=== PATIENT | female | born 1955 | race Caucasian/White ===

== ENCOUNTER → 2018-02-17 16:12 | Outpatient (CLI) | payer SELFPAY ==
[2018-03-01 12:09] LABS: Ca Oxalate, Monohydrate 95 % (.); Size 4x4x3 mm (.)
== END ==
PROVIDERS: Family Provider Internal Medicine; Visit Provider Nurse Practitioner Adult Health
DX: N20.0 Calculus of kidney (principal)
CPT/HCPCS: 82360

== ENCOUNTER → 2018-02-28 15:47 | Outpatient (CLI) | payer BC, SELFPAY | PROVIDERS: Visit Provider Nurse Practitioner Adult Health | DX: R31.9 Hematuria, unspecified (principal) | CPT/HCPCS: 87077; 87086; 87088; 87186 ==

== ENCOUNTER → 2020-06-27 08:30 | Outpatient (CLI) | payer MEDICARE, OTHER, SELFPAY ==
--- NOTE | 2020-06-27 08:36 | BD_ITS ---
STUDY: DUAL ENERGY X-RAY ABSORPTIOMETRY / DXA REASON FOR EXAM: Female, 64 years old. 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 COMPARISON: None. FINDINGS: Lumbar Spine (L1-L4): g/cm2 (0.935) / T-score (-1.9) / Z-score (-0.3) Findings are suggestive of osteopenia with a moderate fracture risk. Increased thoracic kyphosis. Left Femur Total: g/cm2 (0.959) / T-score (-0.4) / Z-score (0.9) Left Femoral Neck: g/cm2 (0.854) / T-score (-1.3) / Z-score (0.2) Right Femur Total: g/cm2 (0.948) / T-score (-0.5) / Z-score (0.8) Right Femoral Neck: g/cm2 (0.814) / T-score (-1.6) / Z-score (-0.1) BD/Dexa Bone Density Study IMPRESSION: The patient is considered osteopenic as outlined below according to World Rohit Organization (WHO) criteria with a moderate fracture risk. Reference Information: The T-score is the number of standard deviations above or below the standard which is normal for young adults at their peak bone mineral density. The World Health Organization (WHO) interprets the T-scores as follows: Above -1 Normal bone density Between -1 and -2.5 Osteopenia Equal to / or below -2.5 Osteoporosis As a practical clinical guideline, osteopenia may be graded as follows: Mild -1 through -1.5 Moderate -1.6 through -2.0 Severe -2.1 through -2.4 The Z-score is the number of standard deviations above or below age-matched controls. A Z-score of less than -1.5 would be considered abnormal. References: 1. NIH Osteoporosis and Related Bone Diseases www osteo.org 2. International Society for Clinical Densitometry www iscd.org 3. National Osteoporosis Foundation www nof.org Electronically Signed: Blane Miles, at 9:47 EST , Service support ,
== END ==
PROVIDERS: PCP Nurse Practitioner Primary Care; Referring Provider Nurse Practitioner Primary Care; Visit Provider Nurse Practitioner Primary Care
DX: Z13.820 Encounter for screening for osteoporosis (principal); Z78.0 Asymptomatic menopausal state
CPT/HCPCS: 77080

== ENCOUNTER 2023-04-26 17:27 | Emergency (ER) | payer MEDICARE, OTHER, SELFPAY ==
[2023-04-26 17:31] VITALS: BP 128/74; PULSE 76; RESP 18; TEMP 35.6; O2SAT 100; BMI 34.0
--- NOTE | 2023-04-26 18:17 | EDS_ITS ---
HPI History of Present Illness Chief Complaint: Lower Extremity Injury Informant: patient Narrative Narrative: Patient 67-year-old female with worsening left knee pain presenting for knee pain. Patient actually saw her PCP office today for this is after they were moving her knee around she has had increased pain and warmth to her knee. She is having a hard time ambulating. She was prescribed naproxen but has not picked it up from the pharmacy. She had been taking ibuprofen and thought she was doing better but has not taken it for the past few days. She was referred to orthopedics through [facility] but cannot get in until May 27. Patient states she normally is on her feet and works 4 days a week for 8 hours a day and states she cannot keep going on like this. She has an x-ray through PCP office and they said is not the bone. She denies any fever or chills. She has swelling in her knee but denies any other lower extremity swelling. Denies any other systemic symptoms. Denies any new trauma. No other complaints or concerns at this time. [facility] Medical History Blood in stool Cataracts, bilateral Chest pain History of toxemia of Hyperlipidemia Vitamin D deficiency Home Medications cholecalciferol (vitamin D3) 1,250 mcg (50,000 unit) capsule 1,250 mcg PO 2XW 04/01/23 [History Last Taken Unknown] calcium carbonate 600 mg calcium (1,500 mg) tablet (Calcium) 600 mg PO DAILY 04/13/23 [History Last Taken Unknown] multivitamin 1 tab PO DAILY 04/13/23 [History Last Taken Unknown] Allergy/AdvReac Type Severity Reaction Status Date / Time latex Allergy Rash Verified 04/26/23 17:30 Sulfa (Sulfonamide AdvReac Severe Hives Verified 04/26/23 17:30 Antibiotics) maddox AdvReac migraine Verified 04/26/23 17:30 onion [Onion] AdvReac Other Verified 04/26/23 17:30 orange juice [[place] Juice] AdvReac Other Verified 04/26/23 17:30 Family History Mother CAD (coronary artery disease) Heart disease CABG Father CVA (cerebral vascular accident) cerebral embolism Hypertension Brother Chest pain PVD (peripheral vascular disease) Medley's esophagus Grandfather Alzheimers disease Surgical History History of ankle surgery (~2004) Hx of appendectomy Hx of total hysterectomy (~07/2001) Social History Smoking Status: Never smoker alcohol intake: never substance use type: does not use ROS ROS ED Constitutional Constitutional ED: Denies chills or fever(s) Respiratory/Chest Respiratory/Chest: Denies cough Musculoskeletal Musculoskeletal: Reports other Details: Left knee pain Integumentary Denies rash Neurologic Neurologic: Denies paresthesias or weakness Hematologic/Lymphatic Hematologic/Lymphatic: Denies easy bleeding EXAM Physical Exam Const Vital Signs: 04/26/23 17:31 Temperature 96.1 F L Temperature Source Temporal Pulse Rate 76 Respiratory Rate 18 Blood Pressure 128/74 H Blood Pressure Mean 92 Pulse Ox 100 Oxygen Delivery Method Room Air Positive well nourished and well developed General Appearance ED: well developed and NAD HEENT Reports moist mucous membranes Neck supple Resp normal respiratory effort Cardio regular rate and regular rhythm Extremity Extremity Narrative: Patient has edema and a slight effusion to the left knee. There is mild warmth but no associated erythema. Does not tolerate complete extension of the knee but does not have short arc range of motion. Right now does not really tolerate range of motion of the knee to test for ligamental laxity. No distal edema appreciated. No palpable cords. Neuro oriented x3, moves all extremities and no sensory deficits noted Sensorium / Orientation: alert Psych mental status grossly normal Skin no wounds Rashes: no rashes MDM MDM MDM Narrative Medical decision making narrative: Patient is evaluated for ongoing left knee pain. She does have an associated effusion. Have a low suspicion of a septic joint given her lack of fever, systemic symptoms and short arc range of motion pain. She is already had an x- ray I do not think repeating it is necessary. She is not really maximized NSAID therapy so I do not think we need to start her on steroids at this time. 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 I did give her 1 dose of oxycodone to take tonight if she feels that she needs it. Is given an Chucho wrap. She does have a walker to use as needed. Counseled on the importance of resting it and letting the inflammation go down as well as RICE therapy. Will be given referral to [facility] to see if they can get her in sooner. I did peer counselor the patient that I am not able to order an emergent MRI for her. She does verbalize understanding of this. Is given return precautions I did discuss the signs of a septic joint and reasons to return to the emergency room as well as generalized debility. We did discuss giving 1 dose of IM morphine in the ER but patient declined. Discharge Plan Triage Chief Complaint: Lower Extremity Injury ED Provider: Suzanne Cao Dx/Rx/DC Orders Clinical Impression: Effusion of left knee, Acute pain of left knee Instructions: ED Knee Pain of Uncertain Cause, ED Knee Effusion Prescriptions: No Action cholecalciferol (vitamin D3) 1,250 mcg (50,000 unit) capsule 1,250 mcg PO 2XW multivitamin Tablet 1 tab PO DAILY calcium carbonate [Calcium 600] 600 mg calcium (1,500 mg) tablet 600 mg PO DAILY Primary Care Provider: JO ANN MIRELES Referrals: Andrea Medrano MD [Med Staff - Active Staff] - Sekou Lundy MD [Med Staff - Active Staff] - JO ANN MIRELES, [employer] [Primary Care Provider] - Activity Restrictions/Additional Instructions: Ice your knee is much as possible and elevate it. Wear Chucho wrap to help with compression and stability. Use walker to help you get around especially if this level of pain persist. If you develop fever, chills, redness over the knee or do not feel like you are safe to get around at home please return to the emergency room. You have been given referral for 2 different orthopedist to hopefully get you seen sooner. He can call their office tomorrow to try to schedule an appointment. Disposition Disposition: Home, Self Care
[2023-04-26] MEDS: Naproxen 375 MG Tablet PO (18:29)
[2023-04-26] MEDS: oxyCODONE 5 MG Tablet PO (18:41)
== END 2023-04-26 18:54 | disposition home or self-care (01) ==
LOC: ED 18:40
PROVIDERS: Emergency Provider Emergency Medicine; PCP Nurse Practitioner; Visit Provider Emergency Medicine
DX: M25.562 Pain in left knee (principal); M25.462 Effusion, left knee; E78.5 Hyperlipidemia, unspecified; Z90.49 Acquired absence of other specified parts of digestive tract; Z90.710 Acquired absence of both cervix and uterus
CPT/HCPCS: 99282

== ENCOUNTER → 2023-05-04 | Outpatient (CLI) | payer MEDICARE, OTHER, SELFPAY ==
--- NOTE | 2023-05-04 16:53 | STRESSREP ---
Stress Test Report Date: 05/04/2023 Procedure: Pharmacologic stress nuclear imaging study Indications: Chest pain Consent: Per the patient Procedure: The patient underwent pharmacologic (Regadenoson 0.4mg ) evaluation with a peak heart rate of 141 beats per minute (93%predicted maximal heart rate) and a peak blood pressure of 154/80 mmHg. The baseline ECG demonstrated sinus rhythm. The peak pharmacologic ECG demonstrated no ischemic change. There were no cardiac dysrhythmias pretest, during pharmacologic infusion, or recovery. There was no complaint of chest discomfort during pharmacologic infusion or recovery. The patient was injected with 14.1 millicuries of technetium 99m Cardiolite and subsequently rest SPECT Cardiolite nuclear imaging was obtained in the horizontal long, vertical long, and short axis views. The patient underwent pharmacologic (Regadenoson) evaluation. The patient was injected with 43.3 millicuries of technetium 99m Cardiolite and subsequently stress SPECT Cardiolite nuclear imaging was obtained in the horizontal long, vertical long, and short axis views. A gated Cardiolite study at peak stress was obtained. The examination was stopped secondary to completion of protocol. Rest and stress SPECT Cardiolite nuclear imaging status post realignment, normalization, and attenuation correction demonstrate no fixed or reversible perfusion defects. There is end systolic thickening and brightening. The gated Cardiolite study demonstrates myocardial thickening and inward wall motion. The reported LVEF is 71%. Impression: 1. Pharmacologic (Regadenoson) evaluation 2. Peak pharmacologic ECG with no ischemic changes. 3. There were no cardiac dysrhythmias pretest, during pharmacologic infusion, or recovery. 5. Rest and stress SPECT Cardiolite nuclear imaging demonstrate relative uniform tracer uptake and myocardial perfusion appearing within normal limits. 6. The gated Cardiolite study reports an LVEF of 71%. This note was generated with [employer] software. It may contain incorrect words, spelling, and punctuation that were not noted in checking the note before signing.
== END | disposition home or self-care (01) ==
PROVIDERS: PCP Nurse Practitioner; Referring Provider Internal Medicine Cardiovascular Disease; Visit Provider Internal Medicine Cardiovascular Disease
DX: R07.9 Chest pain, unspecified (principal)
CPT/HCPCS: 78452; 93017; A9500

== ENCOUNTER 2023-09-09 05:21 | Day surgery (SDC) | payer MEDICARE, OTHER, SELFPAY ==
[2023-09-09] VITALS (14 sets, daily range): BP systolic 97–132; BP diastolic 53–103; PULSE 46–71; RESP 14–16; TEMP 35.9–36.4; O2SAT 84–99; BMI 34.1
--- OUTSIDE RECORDS SUMMARY | 2023-09-09 05:26 | XMS RPT_ITS | CCD ---
Author Name Unknown Address [address] [place] [address] Organization [facility] Care Team Providers Care Healthcare Translator Name Role Phone Tizzano, Derrick P Unavailable Unavailable Tizzano, Derrick P Unavailable Unavailable No Doctor Assigned, Nodr Unavailable Unavail able Tizzano, Derrick P Unavailable Unavailable Tizzano, Derrick P Unavailable Unavailable No Doctor Assigned, Nodr Unavailable Unavail able PANCHITO MARKS Unavailable Unavailable PHYSICIAN, NONE Unavailable Unavailable Marcy FELIZ, Sue Primary Care Provider [phone] Sue Vidal MD Primary Care Provider Sue Vidal MD Primary Care Provider [phone] OLDER, DAFNE Referring Unavailable GANTA, SUE Primary Care Unavailable GANTA, SUE Referring Unavailable GANTA, SUE Primary Care Unavailable GANTA, SUE Referring Unavailable GANTA, SUE Attending Unavailable GANTA, SUE Primary Care Unavailable OLDER, DAFNE Attending Unavailable GANTA, SUE Primary Care Unavailable OLDER, DAFNE Referring Unavailable GANTA, SUE Primary Care Unavailable OLDER, DAFNE Referring Unavailable GANTA, SUE Primary Care Unavailable OLDER, DAFNE Referring Unavailable GANTA, SUE Primary Care Unavailable GANTA, SUE Primary Care Unavailable LIU, THAD Referring Unavailable GANTA, SUE Primary Care Unavailable OLDER, DAFNE Attending Unavailable GANTA, SUE Primary Care Unavailable OLDER, DAFNE Referring Unavailable GANTA, SUE Primary Care Unavailable OLDER, DAFNE Attending Unavailable GANTA, SUE Primary Care Unavailable OLDER, DAFNE Referring Unavailable GANTA, SUE Primary Care Unavailable OLDER, DAFNE Attending Unavailable GANTA, SUE Primary Care Unavailable Allergies Allergy Classification Reported Allergen(s) Allergy Type Date of Onset Reaction(s) Facility (12 sources) Latex; Translations: [Latex] Propensity to adverse reactions to drug (disorder) 05-16-20 08 Rash [facility] Repository (11 sources) Ciprofloxacin; Translations: [CIPROFLOXACIN] Drug Allergy 07-31-20 14 Intolerance [facility] Work Phone: (11 sources) metroNIDAZOLE; Translations: [METRONIDAZOLE] Drug Allergy 07-31-20 14 Intolerance [facility] Work Phone: (11 sources) Sulfamethoxazole / Trimethoprim; Translations: [SULFAMETHOXAZOLE-T RIMETHOPRIM] Drug Allergy 10-27-19 19 Rash, Swelling [facility] Work Phone: (10 sources) onions [Other] Propensity to adverse reactions 06-03-20 11 Other: See Comments [facility] (10 sources) processed fruits [Other] Propensity to adverse reactions 06-03-20 11 Other: See Comments [facility] (1 source) Onion extract; Translations: [ONION] Drug Allergy 07-28-20 [facility] Repository (1 source) OTHER; Translations: [OTHER] Propensity to adverse reactions (disorder) 06-03-20 11 [facility] Repository Medications Current Medications Medication Drug Class(es) Dates Sig (Normalized) Sig (Original) perflutren lipid microspheres 1.3 mL in NaCl (PF) 0.9% 10 mL injection (DEFINITY) (4 sources) Start: 03-15-2023 End: 06-13-2024 perflutren lipid microspheres 1.3 mL in NaCl (PF) 0.9% 10 mL injection (DEFINITY) 125 ml sodium chloride 9 mg/ml prefilled syringe (4 sources) Start: 03-15-2023 End: 06-13-2024 sodium chloride 0.9 % (flush) 10 mL (BD POSIFLUSH) Completed/Discontinued Medications Medication Drug Class(es) Dates Sig (Normalized) Sig (Original) cholecalciferol 1.25 mg oral capsule (12 sources) Vitamin D Start: 09-07-2022 End: 03-15-2023 take 1 capsule by mouth two times weekly cholecalciferol, Vitamin D3, (VITAMIN D3) 1,250 mcg (50,000 unit) cap capsule Take 1 capsule by mouth two times a week. 24 capsule 0 03/15/2023 Active Problems Active Problems Problem Classification Problem Date Documented Da te Episodic/Chronic Coagulation and hemorrhagic disorders (9 sources) Thrombocytopenic disorder; Translations: [Thrombocytopenia, unspecified] Onset: 2 Chronic Disorders of lipid metabolism (13 sources) Pure hypercholesterolemia; Translations: [Pure hypercholesterolemia, unspecified] Onset: 6 Chronic Esophageal disorders (1 source) Dyskinesia of esophagus; Translations: [Esophageal spasm] Onset: 3 Chronic Gastrointestinal hemorrhage (10 sources) Hematochezia; Translations: [Melena] 07-13-2014 Episodic Immunizations and screening for infectious disease (1 source) Vaccination needed; Translations: [Encounter for immunization] Episodic Nonspecific chest pain (4 sources) Chest pain; Translations: [Chest pain, unspecified] Onset: 3 03-15-2023 Episodic Nutritional deficiencies (14 sources) Vitamin D deficiency; Translations: [Vitamin D deficiency, unspecified] Onset: 9 12-19-2008 Chronic Other hematologic conditions (1 source) Raised cardiac enzyme or marker; Translations: [Other specified abnormalities of plasma proteins] 04-27-2023 Episodic Viral infection (2 sources) Verruca vulgaris; Translations: [Other viral warts] Episodic Past or Other Problems Problem Classification Problem Date Documented Da te Episodic/Chronic Other bone disease and musculoskeletal deformities (8 sources) Osteopenia; Translations: [Other specified disorders of bone density and structure, multiple sites] Onset: 05-15-2022 Episodic Other non-traumatic joint disorders (3 sources) Pain in left knee; Translations: [Pain in joint, lower leg] Onset: 04-06-2023 04-06-2023 Episodic Other screening for suspected conditions (not mental disorders or infectious disease) (3 sources) Patient encounter status; Translations: [Encounter for screening for diabetes mellitus] Onset: 03-15-2023 Episodic Results Test Name Value Interpretation Reference Range Facil ity Vital Signs Date Time Vital Sign Value Performing Clinician Kendal mackenzie 04-26-2023 08:51-0400 Body weight 81.19 kg Dafne Mireles APRN.CNP Work Phone: [facility] 04-26-2023 08:51-0400 Diastolic blood pressure 80 mm[Hg] Dafne Mireles APRN.CNP Work Phone: [facility] 04-26-2023 08:51-0400 Heart rate 84 /min Dafne Older RFID MANAGER.PROCESS IMPROVEMENT ENGINEER Work Phone: [facility] 04-26-2023 08:51-0400 Respiratory rate 16 /min Dafne Older RFID MANAGER.PROCESS IMPROVEMENT ENGINEER Work Phone: [facility] 04-26-2023 08:51-0400 Systolic blood pressure 122 mm[Hg] Dafne Older RFID MANAGER.PROCESS IMPROVEMENT ENGINEER Work Phone: [facility] 04-06-2023 08:50-0400 Body temperature 98.29 [degF] Thad Liu RFID MANAGER.PROCESS IMPROVEMENT ENGINEER Work Phone: [facility] 04-06-2023 08:50-0400 Body weight 83.46 kg Thad Liu RFID MANAGER.PROCESS IMPROVEMENT ENGINEER Work Phone: [facility] 04-06-2023 08:50-0400 Diastolic blood pressure 80 mm[Hg] Thad Liu RFID MANAGER.PROCESS IMPROVEMENT ENGINEER Work Phone: [facility] 04-06-2023 08:50-0400 Heart rate 98 /min Thad Liu RFID MANAGER.PROCESS IMPROVEMENT ENGINEER Work Phone: [facility] 04-06-2023 08:50-0400 Respiratory rate 16 /min Thad Liu RFID MANAGER.PROCESS IMPROVEMENT ENGINEER Work Phone: [facility] 04-06-2023 08:50-0400 SaO2% (BldA) [Mass fraction] 96 % Thad Liu RFID MANAGER.PROCESS IMPROVEMENT ENGINEER Work Phone: [facility] 04-06-2023 08:50-0400 Systolic blood pressure 122 mm[Hg] Thad Liu RFID MANAGER.PROCESS IMPROVEMENT ENGINEER Work Phone: [facility] 03-15-2023 08:44-0400 Body weight 82.56 kg Dafne Older RFID MANAGER.PROCESS IMPROVEMENT ENGINEER Work Phone: [facility] 03-15-2023 08:44-0400 Diastolic blood pressure 80 mm[Hg] Dafne Older RFID MANAGER.PROCESS IMPROVEMENT ENGINEER Work Phone: [facility] 03-15-2023 08:44-0400 Heart rate 60 /min Dafne Older RFID MANAGER.PROCESS IMPROVEMENT ENGINEER Work Phone: [facility] 03-15-2023 08:44-0400 Respiratory rate 16 /min Dafne Older RFID MANAGER.PROCESS IMPROVEMENT ENGINEER Work Phone: [facility] 03-15-2023 08:44-0400 Systolic blood pressure 132 mm[Hg] Dafne Older RFID MANAGER.PROCESS IMPROVEMENT ENGINEER Work Phone: [facility] 09-07-2022 08:39-0500 Body height 156.2 cm Sue Vidal MD Work Phone: [facility] 09-07-2022 08:39-0500 Body temperature 96.6 [degF] Sue Vidal MD Work Phone: [facility] 09-07-2022 08:39-0500 Body weight 83.01 kg Sue Vidal MD Work Phone: [facility] 09-07-2022 08:39-0500 Diastolic blood pressure 58 mm[Hg] Sue Vidal MD Work Phone: [facility] 09-07-2022 08:39-0500 Heart rate 80 /min Sue Vidal MD Work Phone: [facility] 09-07-2022 08:39-0500 Respiratory rate 12 /min Sue Vidal MD Work Phone: [facility] 09-07-2022 08:39-0500 SaO2% (BldA) [Mass fraction] 96 % Sue Vidal MD Work Phone: [facility] 09-07-2022 08:39-0500 Systolic blood pressure 118 mm[Hg] Sue Vidal MD Work Phone: [facility] 05-15-2022 09:25-0400 Body height 156.2 cm Sue Vidal MD Work Phone: [facility] 05-15-2022 09:25-0400 Body temperature 97.59 [degF] Sue Vidal MD Work Phone: [facility] 05-15-2022 09:25-0400 Body weight 82.56 kg Sue Vidal MD Work Phone: [facility] 05-15-2022 09:25-0400 Diastolic blood pressure 72 mm[Hg] Sue Vidal MD Work Phone: [facility] 05-15-2022 09:25-0400 Heart rate 83 /min Sue Vidal MD Work Phone: [facility] 05-15-2022 09:25-0400 Respiratory rate 14 /min Sue Vidal MD Work Phone: [facility] 05-15-2022 09:25-0400 SaO2% (BldA) [Mass fraction] 96 % Sue Vidal MD Work Phone: [facility] 05-15-2022 09:25-0400 Systolic blood pressure 114 mm[Hg] Sue Vidal MD Work Phone: [facility] 02-03-2022 14:25-0400 Body height 156.2 cm Sue Vidal MD Work Phone: [facility] 02-03-2022 14:25-0400 Body temperature 97 [degF] Sue Vidal MD Work Phone: [facility] 02-03-2022 14:25-0400 Body weight 83.92 kg Sue Vidal MD Work Phone: [facility] 02-03-2022 14:25-0400 Diastolic blood pressure 66 mm[Hg] Sue Vidal MD Work Phone: [facility] 02-03-2022 14:25-0400 Heart rate 75 /min Sue Vidal MD Work Phone: [facility] 02-03-2022 14:25-0400 Respiratory rate 12 /min Sue Vidal MD Work Phone: [facility] 02-03-2022 14:25-0400 SaO2% (BldA) [Mass fraction] 96 % Sue Vidal MD Work Phone: [facility] 02-03-2022 14:25-0400 Systolic blood pressure 120 mm[Hg] Sue Vidal MD Work Phone: [facility] 02-02-2022 15:16-0400 Body weight 84.1 kg Sue Vidal MD Work Phone: [facility] 02-02-2022 15:16-0400 Diastolic blood pressure 74 mm[Hg] Sue Vidal MD Work Phone: [facility] 02-02-2022 15:16-0400 Heart rate 54 /min Sue Vidal MD Work Phone: [facility] 02-02-2022 15:16-0400 Respiratory rate 16 /min Sue Vidal MD Work Phone: [facility] 02-02-2022 15:16-0400 SaO2% (BldA) [Mass fraction] 97 % Sue Vidal MD Work Phone: [facility] 02-02-2022 15:16-0400 Systolic blood pressure 116 mm[Hg] Sue Vidal MD Work Phone: [facility] Encounters Encounter Date Encounter Type Care Provider Facility Start: 08-19-2023 End: 08-20-2023 [facility] Start: 08-19-2023 Encounter for other preprocedural examination DAFNE MIRELES [facility] Start: 08-19-2023 End: 08-20-[address] [facility] Start: 07-28-2023 End: 07-29-[address] [facility] Start: 05-06-2023 End: 05-06-[address] [facility] Facility[facility] Start: 04-26-2023 End: 04-26-[address] [facility] Facility[facility] Start: 04-26-2023 End: 04-26-2023 Patient encounter procedure Dafne Mireles RFID MANAGER.PROCESS IMPROVEMENT ENGINEER Work Phone: [facility] Procedures Date Procedure Procedure Detail Performing Clinician Start: 03-15-2023 Ecg routine ecg w/le ast 12 lds i&r only Dafne Older RFID MANAGER.PROCESS IMPROVEMENT ENGINEER Work Phone: Start: 03-15-2023 Lipid 1996 panel - S [place] or Plasma Dafne Older RFID MANAGER.NATALIE Work Phone: Start: 05-04-2022 Mammography Mammograph y Coordinator Start: 05-02-2020 Mammography Sue flores MD Work Phone: Start: 08-01-2014 Colonoscopy Sue flores MD Work Phone: Plan of Treatment Date Care Activity Detail Author Start: 03-15-2028 Lipid 1996 panel - Serum or Plasma Lipid Screening [facility] Start: 03-15-2028 LIPID SCREEN LIPID SCREEN [facility] Start: 05-04-2027 LIPID SCREEN LIPID SCREEN [facility] Start: 03-15-2026 DIABETES SCREEN DIABETES SCREEN [facility] Start: 03-15-2026 Diabetes Screening Diabetes Screenin g [facility] Start: 05-04-2025 DIABETES SCREEN DIABETES SCREEN [facility] Start: 03-08-2025 LIPID SCREEN LIPID SCREEN [facility] Start: 08-01-2024 Colonoscopy COLONOSCOPY [facility] Start: 08-01-2024 COLORECTAL CANCER SCREENING COLORECTAL CANCER SCREENING [facility] Start: 05-04-2023 Mammography [facility] Start: 04-09-2023 Influenza vaccination [facility] Start: 03-08-2023 DIABETES SCREEN DIABETES SCREEN [facility] Start: 08-15-2022 End: 10-15-2022 25-hydroxyvitamin D3 [Mass/volume] in Serum or Plasma VITAMIN D 25 HYDROXY Lab Routine Vitamin D deficiency Expected: 08/15/2022, Expires: 10/15/2022 [facility] Work Phone: Immunizations Immunization Date Immunization Notes Care Provider Fa cili 09-07-2022 pneumococcal polysaccharide vaccine, 23 valent Sue Vidal MD Work Phone: [facility] Work Phone: 03-08-2020 pneumococcal conjuga te vaccine, 13 valent Sue Vidal MD Work Phone: [facility] 04-20-2014 hepatitis A and hepatitis B vaccine Sue Vidal MD Work Phone: [facility] 10-18-2013 hepatitis A vaccine, unspecified formulation Sue Vidal MD Work Phone: [facility] 10-18-2013 hepatitis B vaccine, adult dosage Sue Vidal MD Work Phone: [facility] Payers Date Payer Category Payer Medicare MEDICARE MEDICAR E A AND B [id number] 2018-Present [phone] [place] [address] Medicare [id number] 2018 Medicare MEDICARE MEDICAR E A AND B [id number] 2018-Present [phone] [place] [address] Medicare [id number] 2018 Medicare [id number] 2018 Medicare [id number] 2018 Private Health Insurance [employer] A [employer]NA MEDICARE SUPPLEMENT [id number] 2018-Present [phone] [address] [address] [place] [address] Indemnity [id number] 2018 Private Health Insurance [employer] A [employer]NA MEDICARE SUPPLEMENT [id number] 2018-Present [phone] [address] [address] [place] [address] Indemnity [id number] 2018 Unknown [id number] 2017 Unknown Social History Date Type Detail Facility Start: 06-03-2011 End: 05-15-2022 Tobacco smoking status NHIS Never smoked tobacco [facility] Start: 02-02-2022 End: 04-06-2023 Alcohol intake Current non-drinker of alcohol (finding) [facility] Start: 01-28-1956 Sex Assigned At Not on file [facility] Start: 01-23-2022 End: 05-15-2022 Exposure to SARS-CoV-2 (event) Not sure [facility] Work Phone: Start: 06-03-2011 End: 05-15-2022 Tobacco use and exposure Smokeless tobacco non-user [facility] Start: 09-07-2022 End: 03-15-2023 History of Social function [facility] Work Phone: Start: 09-07-2022 End: 03-15-2023 Tobacco use panel [facility] Work Phone: Adult Depression Screening Assessment 0 [facility] Work Phone: Clinical Notes 02-02-2022 to 08-19-2023 Dfane Mireles APRN.PROCESS IMPROVEMENT ENGINEER - 04/26/2023 8:59 AM EDTTelephone Encounter - Thad Liu APRN.PROCESS IMPROVEMENT ENGINEER - 04/06/2023 10:33 AM EDThad Vizcarra APRN.PROCESS IMPROVEMENT ENGINEER - 04/06/2023 8:53 AM EDT Note Date & Type Note Facility 08-19-2023 Note HNO ID: [id number] Author: DAFNE MIRELES APRN.PROCESS IMPROVEMENT ENGINEER Service: ? Author Type: Nurse Practitioner Type: Progress Notes Filed: 08/19/2023 14:19 Note Text: CC: Patient presents with: Pre-Op Exam: Pre-op Clearance, L shoulder HPI Aleisha Johnston is a 67 year old female who presents today for pre-op evaluation. Surgical Procedure: Left shoulder arthroscopy with rotator cuff repair. Date of Procedure: 09/09/23 Surgeon: Dr. Dariela GALEANO date: 08/20/23 METS: Walk indoors, such as around the house (1.75 METs): YES Do light work around the house, such as dusting or washing dishes (2.70 METs): YES Take care of self; that is eating, dressing, bathing, using the toilet (2.75 METs): YES Walk a block or two on level ground (2.75 METs): YES Do moderate work around the house such as vacuuming, sweeping floors, or carrying in groceries (3.50 METs): YES Do yardwork, such as raking leaves, weeding,or pushing a power mower (4.50 METs): YES Climb a flight of stairs or walk up a hill (5.50 METs): YES Participate in moderate recreational activities, such as golf, bowling, dancing, doubles tennis, or throwing a baseball or football (6.00 METs): YES Participate in strenuous sport, such as swimming, singles tennis, football, basketball, or skiing (7.50 METs): unknown - unable to do with knees Do heavy work around the house, such as scrubbing floors, lifting or moving heavy furniture (8.00 METs): unknown - unable to do with knees Run a short distance (8.00 METs): unknown - unable to do with knees Total: 6 Patient denies any chest pain or undue shortness of breath with the above physical activity. 1. Diabetes: None 2. Hypertension requiring medication: No 3. Congestive Heart Failure: No 4. Current Smoker within 1 Year: No 5. History of COPD: No 6. History of JAMES: No 7. Dialysis: No Has had ongoing sternal pain. Has had a work up last year. EKG showed NSR 03/15/23 ECHO on 03/15/23: - The left ventricle is normal in size. Left ventricular systolic function is normal. EF = 61 ? 5% (2D biplane) Grade I left ventricular diastolic dysfunction. - The right ventricle is normal in size. Right ventricular systolic function is normal. - There are no significant valvular abnormalities. Stress test on Stress Test without ischemia on 05/04/[address] Colin with [facility] on 05/24/23 reviewing information without concern. Still with occasional chest pain without known cause. Does not happen with exertion and not correlated with eating. Was going to trial PPI to see if possible GERD or esophageal spasm, but patient does not want to take this. Denies shortness of breath, coughing, wheezing, fever, chills, palpitations, edema, and chest pressure. Chronic mild thrombocytopenia: No abnormal bleeding at this time, will recheck prior to surgery REVIEW OF SYSTEMS General: no fevers, no chills, no night sweats, no recurrent infections, no change in appetite, no change in energy, and no significant changes in weight HEENT: no frequent or significant headaches, no changes in hearing, no visual changes, no nose bleeds, no sinus or nasal problems Neck: no lumps, no pain , and no swelling Respiratory: no cough, no wheezing, no shortness of breath, no hemoptysis Cardiovascular: no chest pain, no chest pressure, no palpitations, and no swelling GI: No nausea, vomiting, or diarrhea : No history of dysuria, frequency or incontinence Neurologic: No headache, weakness, numbness, dizziness, memory loss, syncope. PAST MEDICAL HISTORY Diagnosis Date Blood in stool Cataracts, bilateral in [place] Other and unspecified hyperlipidemia Toxemia in PAST SURGICAL HISTORY Procedure Laterality Date APPENDECTOMY remote COLONOSCOPY 2004 COLONOSCOPY FLX DX W/COLLJ SPEC WHEN PFRMD 08/01/2014 Colonoscopy OPTX ANKLE DISLOCATION W/REPAIR/INT/XTRNL FIXJ 2004 ORIF Ankle, left TOTAL ABDOMINAL HYSTERECT W/WO RMVL TUBE OVARY 07/09 Hysterectomy, LARISSA ALLERGIES Bactrim [Sulfamethoxazole-Trimethoprim], Ciprofloxacin, Latex, Metronidazole, and Onion MEDICATIONS cholecalciferol, Vitamin D3, (VITAMIN D3) 1,250 mcg (50,000 unit) cap capsuleTake 1 capsule by mouth two times a week.Disp: 24 capsuleRfl: 0 FAMILY HISTORY Problem Relation Age of Onset Heart Mother bypass surgery Cerebral Embolism Father x2 strokes Hypertension Father No Known Problems Sister No Known Problems Sister other (CP) Brother other (luna's esophagus) Brother other (PVD) Brother Alzheimer's Disease Paternal Grandfather Social History Tobacco Use Smoking status: Never Smokeless tobacco: Never Vaping Use Vaping Use: Never used Substance Use Topics Alcohol use: No Drug use: No PHYSICAL EXAM BP 122/80 Pulse 72 Temp 36.1 ?C (97 ?F) (Temporal) Resp 16 Wt 82.6 kg (182 lb) SpO2 95% BMI 33.83 kg/m? General Appearance: well appearing, in no acute distre (more content not included)... [facility] 07-28-2023 Note HNO ID: [id number] Author: Dafne Mireles APRN.CNP Service: ? Author Type: Nurse Practitioner Type: Progress Notes Filed: 07/29/2023 12:40 PM Note Text: CC: Patient presents with: Recheck: 3 month follow up HPI Aleisha Johnston is a 67 year old female who presents today for routine follow up. Still with intermittent sternal queezing that can last for minutes to hours. Had recent negative stress test after seeing cardiology. Feels like she needs water when it happens. Occurs randomly wether she is resting or doing activity. Denies palpitations, nausea, heartburn, abdominal pain, difficulty swallowing, shortness of breath, edema, dizziness, fatigue, or syncope. REVIEW OF SYSTEMS General: no fevers, no chills, no night sweats, no recurrent infections, no change in appetite, no change in energy, and no significant changes in weight Respiratory: no cough, no wheezing, no shortness of breath, no hemoptysis Cardiovascular: no palpitations and no swelling Neurologic: No headache, weakness, numbness, tingling, neck stiffness, tremor, vertigo, dizziness, memory loss, syncope. PAST MEDICAL HISTORY Diagnosis Date Blood in stool Cataracts, bilateral in [place] Other and unspecified hyperlipidemia Toxemia in PAST SURGICAL HISTORY Procedure Laterality Date APPENDECTOMY remote COLONOSCOPY 2004 COLONOSCOPY FLX DX W/COLLJ SPEC WHEN PFRMD 08/01/2014 Colonoscopy OPTX ANKLE DISLOCATION W/REPAIR/INT/XTRNL FIXJ 2004 ORIF Ankle, left TOTAL ABDOMINAL HYSTERECT W/WO RMVL TUBE OVARY 07/09 Hysterectomy, LARISSA ALLERGIES Bactrim [Sulfamethoxazole-Trimethoprim], Ciprofloxacin, Latex, Metronidazole, Onions [Other], and Processed Fruits [Other] MEDICATIONS naproxen (NAPROSYN) 500 mg tabletTake 1 tablet by mouth twice daily as needed (for pain/inflammation). Take with food.Disp: 30 tabletRfl: 0 cholecalciferol, Vitamin D3, (VITAMIN D3) 1,250 mcg (50,000 unit) cap capsuleTake 1 capsule by mouth two times a week.Disp: 24 capsuleRfl: 0 FAMILY HISTORY Problem Relation Age of Onset Heart Mother bypass surgery Cerebral Embolism Father x2 strokes Hypertension Father No Known Problems Sister No Known Problems Sister other (CP) Brother other (luna's esophagus) Brother other (PVD) Brother Alzheimer's Disease Paternal Grandfather Social History Tobacco Use Smoking status: Never Smokeless tobacco: Never Vaping Use Vaping Use: Never used Substance Use Topics Alcohol use: No Drug use: No PHYSICAL EXAM BP 128/78 Pulse 80 Resp 16 Wt 82.1 kg (181 lb) SpO2 96% BMI 33.65 kg/m? General Appearance: well appearing, in no acute distress, alert Pysch: mood and affect broad and appropriate Skin: Skin color, texture, turgor normal for age; Eyes: conjunctiva pink and moist, no icterus, sclera white, non-injected Lungs: Lungs clear to auscultation. No wheezing, rhonchi, rales. Heart: RRR without murmur, gallop, or rubs. No ectopy Health maintenance reviewed with patient: Covid-19 Vaccine(1) Never done DTaP,Tdap,Td Vaccine(1 - Tdap) Never done Shingrix Vaccine(1 of 2) Never done RSV Vaccine(1 - 1-dose 60+ series) Never done Advance Directive Discussion Never done Influenza Vaccine(1) Never done Mammogram Screening due on 05/06/2024 Colorectal Cancer Screening due on 08/01/2024 Diabetes Screening due on 03/15/2026 Lipid Screening due on 03/15/2028 Bone Density Screening Completed Depression Assessment Completed Pneumococcal Vaccine: 65+ Completed Hepatitis C Screening Discontinued DATA REVIEWED: Most recent labs and imaging results. ASSESSMENT/PLAN: 1. Sternal pain - ICD9: 786.50, ICD10: R07.89 (primary diagnosis) - not cardiac related. Possible esophageal spasm. Starting on PPI and will recheck in 4-6 weeks. May need EGD - H PYLORI IGG AB 2. Esophageal spasm - ICD9: 530.5, ICD10: K22.4 As above - H PYLORI IGG AB 3. Vitamin D deficiency - ICD9: 268.9, ICD10: E55.9 - VITAMIN D 25 HYDROXY Prescription instructions reviewed with patient as applicable. Potential red flag symptoms discussed with the patient. Reviewed appropriate action plan to take if red flag symptoms occur. Patient agreeable to treatment plan. Dafne Mireles APRN.[facility] 05-06-2023 Note HNO ID: [id number] Author: aTmmy Marino MammEMCAS Service: ? Author Type: Surveillance Systems Analyst Type: Progress Notes Filed: 05/06/2023 8:04 AM Note Text: Radiology Service Progress Note PATIENT NAME: Aleisha Johnston DATE OF SERVICE: May 06, 2023 TIME: 7:39 AM PATIENT IDENTITY VERIFICATION COMPLETED USING TWO (2) IDENTIFIERS: Name and Date of confirmed by patient verbally. FALL SCREENING: Has the patient had 2 falls in the last year or 1 fall with injury or currently using an Ambulatory Assistive Device (Walker, Cane, Wheelchair, Crutches, etc.)? No PATIENT GENDER DATA: Female. status: : No status: NO. PATIENT RELEVANT IMPLANT DATA REVIEWED: Not Applicable RADIOLOGY DEPARTMENT: Mammography PERIPHERAL IV DATA: Not applicable SIGNED BY: Tammy Marino Ning May 06, 2023 7:39 AM [facility] 04-26-2023 Note HNO ID: [id number] Author: Dafne Mireles APRN.PROCESS IMPROVEMENT ENGINEER Service: ? Author Type: Nurse Practitioner Type: Progress Notes Filed: 04/27/2023 9:47 AM Note Text: CC: Patient presents with: Recheck: Follow up HPI Aleisha Johnston is a 67 year old female who presents today for follow up on chest pain but main concern is left knee pain. Chest pain: Saw Dr. Colin at [facility]. Has stress test ordered for next week as her troponin was elevated and she continues with intermittent chest pain. No change or increase in symptoms. Denies shortness of breath, sweating, palpitations, edema, or change in energy. Left knee pain. Started suddenly over labor day weekend but no injury or identifiable cause. Was seen in Urgent Care 4 weeks ago with xray showing mild arthritic changes. Pain is described as sharp and stabbing when she puts weight on it. Hurts worse at work as she is on her feet the whole day. Tried a compression brace but would roll and cause additional pain. Tried ibuprofen a week ago which was helpful but has not taken since then. Thought it was getting better but end of last week started to intensify again. Denies any instability but is afraid to fall so walks slowly and uses handrails on stairs. Feels her knee gets very stiff and has to extend and flex to get it to bend again. Still with some edema, no redness, fever, weakness, numbness or recent infection. HLD: Denies any chest pain, shortness of breath or known exercise intolerance. Overall tries to eat a well balanced healthy diet and is unable to exercise at this time because of her knee. The 10-year ASCVD risk score (Mojgan PRETTY, et al., 2019) is: 7.9% Values used to calculate the score: Age: 67 years Sex: Female Is Non- : No Diabetic: No Tobacco smoker: No Systolic Blood Pressure: 122 mmHg Is BP treated: No HDL Cholesterol: 60 mg/dL Total Cholesterol: 223 mg/dL REVIEW OF SYSTEMS General: no fevers, no chills, no night sweats, no recurrent infections, no change in appetite, no change in energy, and no significant changes in weight Respiratory: no cough, no wheezing, no shortness of breath, no hemoptysis Cardiovascular: no palpitations and no swelling Neurologic: No headache, weakness, numbness, tingling, dizziness, memory loss, syncope. PAST MEDICAL HISTORY Diagnosis Date Blood in stool Cataracts, bilateral in [place] Other and unspecified hyperlipidemia Toxemia in PAST SURGICAL HISTORY Procedure Laterality Date APPENDECTOMY remote COLONOSCOPY 2004 COLONOSCOPY FLX DX W/COLLJ SPEC WHEN PFRMD 08/01/2014 Colonoscopy OPTX ANKLE DISLOCATION W/REPAIR/INT/XTRNL FIXJ 2004 ORIF Ankle, left TOTAL ABDOMINAL HYSTERECT W/WO RMVL TUBE OVARY 07/09 Hysterectomy, LARISSA ALLERGIES Bactrim [Sulfamethoxazole-Trimethoprim], Ciprofloxacin, Latex, Metronidazole, Onions [Other], and Processed Fruits [Other] MEDICATIONS cholecalciferol, Vitamin D3, (VITAMIN D3) 1,250 mcg (50,000 unit) cap capsuleTake 1 capsule by mouth two times a week.Disp: 24 capsuleRfl: 0 FAMILY HISTORY Problem Relation Age of Onset Heart Mother bypass surgery Cerebral Embolism Father x2 strokes Hypertension Father No Known Problems Sister No Known Problems Sister other (CP) Brother other (luna's esophagus) Brother other (PVD) Brother Alzheimer's Disease Paternal Grandfather Social History Tobacco Use Smoking status: Never Smokeless tobacco: Never Vaping Use Vaping Use: Never used Substance Use Topics Alcohol use: No Drug use: No PHYSICAL EXAM BP 122/80 Pulse 84 Resp 16 Wt 81.2 kg (179 lb) BMI 33.27 kg/m? General Appearance: well appearing, in no acute distress, alert Skin: Skin color, texture, turgor normal for age; Eyes: conjunctiva pink and moist, no icterus, sclera white, non-injected Lungs: Lungs clear to auscultation. No wheezing, rhonchi, rales. Heart: RRR without murmur, gallop, or rubs. No ectopy Musculoskeletal: Left knee- normal to inspection. Tenderness:noted to medial meniscal area. Flexion:Limitation: No, Pain:with deeper flexion; Extension:Limitation:No, Pain:No. Laxity: No but painful with slight manipulation so not aggressively evaluated. Lower extremities: no edema in LE bilaterally, good distal pulses. Muscle strength- 5/5 lower, bilaterally Health maintenance reviewed with patient: Covid-19 Vaccine(1) Never done DTaP,Tdap,Td Vaccine(1 - Tdap) Never done Shingrix Vaccine(1 of 2) Never done Advance Directive Discussion Never done Influenza Vaccine(1) due on 04/09/2023 Mammogram Screening due on 05/04/2023 Colorectal Cancer Screening due on 08/01/2024 Diabetes Screening due on 03/15/2026 Lipid Screening due on 03/15/2028 Bone Density Screening Completed Depression Assessment Completed Pneumococcal Vaccine: 65+ Completed Hepatitis C Screening Discontinued DATA REVIEWED: Most recent labs ASSESSMENT/PLAN: 1 (more content not included)... [facility] 04-26-2023 History of Present illness Narrative CC: Patient presents with: Recheck: Follow up HPI Aleisha Johnston is a 67 year old female who presents today for follow up on chest pain but main concern is left knee pain. Chest pain: Saw Dr. Colin at [facility]. Has stress test ordered for next week as her troponin was elevated and she continues with intermittent chest pain. No change or increase in symptoms. Denies shortness of breath, sweating, palpitations, edema, or change in energy. Left knee pain. Started suddenly over labor day weekend but no injury or identifiable cause. Was seen in Urgent Care 4 weeks ago with xray showing mild arthritic changes. Pain is described as sharp and stabbing when she puts weight on it. Hurts worse at work as she is on her feet the whole day. Tried a compression brace but would roll and cause additional pain. Tried ibuprofen a week ago which was helpful but has not taken since then. Thought it was getting better but end of last week started to intensify again. Denies any instability but is afraid to fall so walks slowly and uses handrails on stairs. Feels her knee gets very stiff and has to extend and flex to get it to bend again. Still with some edema, no redness, fever, weakness, numbness or recent infection. HLD: Denies any chest pain, shortness of breath or known exercise intolerance. Overall tries to eat a well balanced healthy diet and is unable to exercise at this time because of her knee. The 10-year ASCVD risk score (Mojgan PRETTY, et al., 2019) is: 7.9% Values used to calculate the score: Age: 67 years Sex: Female Is Non- : No Diabetic: No Tobacco smoker: No Systolic Blood Pressure: 122 mmHg Is BP treated: No HDL Cholesterol: 60 mg/dL Total Cholesterol: 223 mg/dL REVIEW OF SYSTEMS General: no fevers, no chills, no night sweats, no recurrent infections, no change in appetite, no change in energy, and no significant changes in weight Respiratory: no cough, no wheezing, no shortness of breath, no hemoptysis Cardiovascular: no palpitations and no swelling Neurologic: No headache, weakness, numbness, tingling, dizziness, memory loss, syncope. PAST MEDICAL HISTORY Diagnosis Date Blood in stool Cataracts, bilateral in [place] Other and unspecified hyperlipidemia Toxemia in PAST SURGICAL HISTORY Procedure Laterality Date APPENDECTOMY remote COLONOSCOPY 2004 COLONOSCOPY FLX DX W/COLLJ SPEC WHEN PFRMD 08/01/2014 Colonoscopy OPTX ANKLE DISLOCATION W/REPAIR/INT/XTRNL FIXJ 2004 ORIF Ankle, left TOTAL ABDOMINAL HYSTERECT W/WO RMVL TUBE OVARY 07/09 Hysterectomy, LARISSA ALLERGIES Bactrim [Sulfamethoxazole-Trimethoprim], Ciprofloxacin, Latex, Metronidazole, Onions [Other], and Processed Fruits [Other] MEDICATIONS cholecalciferol, Vitamin D3, (VITAMIN D3) 1,250 mcg (50,000 unit) cap capsule^Take 1 capsule by mouth two times a week.^Disp: 24 capsule^Rfl: 0 FAMILY HISTORY Problem Relation Age of Onset Heart Mother bypass surgery Cerebral Embolism Father x2 strokes Hypertension Father No Known Problems Sister No Known Problems Sister other (CP) Brother other (luna's esophagus) Brother other (PVD) Brother Alzheimer's Disease Paternal Grandfather Social History Tobacco Use Smoking status: Never Smokeless tobacco: Never Vaping Use Vaping Use: Never used Substance Use Topics Alcohol use: No Drug use: No PHYSICAL EXAM BP 122/80 Pulse 84 Resp 16 Wt 81.2 kg (179 lb) BMI 33.27 kg/m General Appearance: well appearing, in no acute distress, alert Skin: Skin color, texture, turgor normal for age; Eyes: conjunctiva pink and moist, no icterus, sclera white, non-injected Lungs: Lungs clear to auscultation. No wheezing, rhonchi, rales. Heart: RRR without murmur, gallop, or rubs. No ectopy Musculoskeletal: Left knee- normal to inspection. Tenderness:noted to medial meniscal area. Flexion:Limitation: No, Pain:with deeper flexion; Extension:Limitation:No, Pain:No. Laxity: No but painful with slight manipulation so not aggressively evaluated. Lower extremities: no edema in LE bilaterally, good distal pulses. Muscle strength- 5/5 lower, bilaterally Health maintenance reviewed with patient: Covid-19 Vaccine(1) Never done DTaP,Tdap,Td Vaccine(1 - Tdap) Never done Shingrix Vaccine(1 of 2) Never done Advance Directive Discussion Never done Influenza Vaccine(1) due on 04/09/2023 Mammogram Screening due on 05/04/2023 Colorectal Cancer Screening due on 08/01/2024 Diabetes Screening due on 03/15/2026 Lipid Screening due on 03/15/2028 Bone Density Screening Completed Depression Assessment Completed Pneumococcal Vaccine: 65+ Completed Hepatitis C Screening Discontinued DATA REVIEWED: Most recent labs ASSESSMENT/PLAN: 1. Acute pain of left knee - ICD9: 719.46, ICD10: M25.562 (primary diagnosis) - still no improvement and tender in meniscal area with concerns of having her knee not able to bend like it is stuck - CONSULT TO ORTHOPAEDICS - NAPROXEN 500 MG TABLET - CONSULT TO PHYSICAL THERAPY - rest and elevate knee as able throughout the day - use Ice to knee for 10-15 minutes 4-5 times a day 2. Chest pain, unspecified type - ICD9: 786.50, ICD10: R07.9 - continue with recommendations by cardiology - call to see if upcoming stress can be NM only as she has a knee injury - go to ER for increased or change in chest pain, shortness of breath, palpitations or any other urgent concern 3. Elevated troponin - ICD9: 790.6, ICD10: R77.8 As above 4. Pure hypercholesterolemia - ICD9: 272.0, ICD10: E78.00 Controlled with current treatment Continue current medication Low fat diet, regular exercise, and weight loss will help to continue to improve this. Prescription instructions reviewed with patient as applicable. Potential red flag symptoms discussed with the patient. Reviewed appropriate action plan to take if red flag symptoms occur. Patient agreeable to treatment plan. Dafne Mireles APRN.CNP documented in this encounter [facility] 04-06-2023 Note HNO ID: [id number] Author: Lindy Goldstein RT(R) Service: ? Author Type: Surveillance Systems Analyst Type: Progress Notes Filed: 04/06/2023 9:59 AM Note Text: Radiology Service Progress Note PATIENT NAME: Aleisha Johnston DATE OF SERVICE: April 06, 2023 TIME: 9:38 AM PATIENT IDENTITY VERIFICATION COMPLETED USING TWO (2) IDENTIFIERS: Name and Date of confirmed by patient verbally. FALL SCREENING: Has the patient had 2 falls in the last year or 1 fall with injury or currently using an Ambulatory Assistive Device (Walker, Cane, Wheelchair, Crutches, etc.)? No PATIENT GENDER DATA: Female. status: : No status: NO. PATIENT RELEVANT IMPLANT DATA REVIEWED: Yes RADIOLOGY DEPARTMENT: General X-ray: Exam(s) Completed: Lower Extremity X-Ray(s): Knee, AP / Lat / Tunne / Merchant Left PERIPHERAL IV DATA: Not applicable SIGNED BY: RT Nat(R) April 06, 2023 9:38 AM [facility] 04-06-2023 Note HNO ID: [id number] Author: Thad Liu APRN.CNP Service: ? Author Type: Nurse Practitioner Type: Progress Notes Filed: 04/06/2023 9:20 AM Note Text: This note was created using Zapariter. Subjective Aleisha Johnston is a 67 year old female. 67 year old female with PMH hypercholesterolemia and thrombocytopenia presents with complaints of knee pain. Acute onset 04/03/23 Left knee Endorses she was working in the garden earlier in the day. States that evening she started with pain. Denies known trauma or injury. Endorses that she was using a chair. Occasional pops and clicks. On Wednesday she went to pharmacy and was measured for a knee brace. Has been wearing that with mild relief. 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 I am sure that I have some kind of arthritis The history is provided by the patient. No automotive parts person was used. Left knee injury: No Left knee condition: Acute Left knee severity: Moderate Left knee progression: Unchanged Patient reports that left knee feels unstable. Patient reports feeling left knee popping. Patient reports feeling left knee not locking and not catching. Left job related: No Left knee aggravating factors: Bending of twisting, excessive training, prolonged standing, change in inclines and rapid change of direction. Left knee alleviating factors: Rest (knee compression). PAST MEDICAL HISTORY Diagnosis Date Blood in stool Cataracts, bilateral in [place] Other and unspecified hyperlipidemia Toxemia in PAST SURGICAL HISTORY Procedure Laterality Date APPENDECTOMY remote COLONOSCOPY 2004 COLONOSCOPY FLX DX W/COLLJ SPEC WHEN PFRMD 08/01/2014 Colonoscopy OPTX ANKLE DISLOCATION W/REPAIR/INT/XTRNL FIXJ 2004 ORIF Ankle, left TOTAL ABDOMINAL HYSTERECT W/WO RMVL TUBE OVARY 07/09 Hysterectomy, LARISSA ALLERGIES Bactrim [Sulfamethoxazole-Trimethoprim], Ciprofloxacin, Latex, Metronidazole, Onions [Other], and Processed Fruits [Other] MEDICATIONS cholecalciferol, Vitamin D3, (VITAMIN D3) 1,250 mcg (50,000 unit) cap capsuleTake 1 capsule by mouth two times a week.Disp: 24 capsuleRfl: 0 FAMILY HISTORY Problem Relation Age of Onset Heart Mother bypass surgery Cerebral Embolism Father x2 strokes Hypertension Father No Known Problems Sister No Known Problems Sister other (CP) Brother other (luna's esophagus) Brother other (PVD) Brother Alzheimer's Disease Paternal Grandfather Social History Tobacco Use Smoking status: Never Smokeless tobacco: Never Vaping Use Vaping Use: Never used Substance Use Topics Alcohol use: No Drug use: No Review of Systems Constitutional: Negative for activity change, appetite change, chills and diaphoresis. Eyes: Negative for pain, discharge, redness and itching. Respiratory: Negative for apnea, cough, choking, chest tightness and shortness of breath. Cardiovascular: Negative for chest pain, palpitations and leg swelling. Gastrointestinal: Negative for abdominal pain, diarrhea, nausea and vomiting. Musculoskeletal: Negative for arthralgias and back pain. Skin: Negative for color change, pallor, rash and wound. Allergic/Immunologic: Negative for environmental allergies, food allergies and immunocompromised state. Neurological: Negative for dizziness, facial asymmetry, light-headedness, numbness and headaches. Hematological: Negative for adenopathy. Does not bruise/bleed easily. Psychiatric/Behavioral: Negative for agitation and behavioral problems. Objective BP 122/80 Pulse 98 Temp 36.8 ?C (98.3 ?F) Resp 16 Wt 83.5 kg (184 lb) SpO2 96% BMI 34.20 kg/m? Physical Exam Vitals and nursing note reviewed. Constitutional: General: She is not in acute distress. Appearance: Normal appearance. She is normal weight. She is not ill-appearing, toxic-appearing or diaphoretic. HENT: Head: Normocephalic and atraumatic. Right Ear: Ear canal and external ear normal. Left Ear: Ear canal and external ear normal. Nose: Nose normal. No congestion or rhinorrhea. Mouth/Throat: Mouth: Mucous membranes are moist. Pharynx: No oropharyngeal exudate or posterior oropharyngeal erythema. Eyes: General: Right eye: No discharge. Left eye: No discharge. Extraocular Movements: Extraocular movements intact. Conjunctiva/sclera: Conjunctivae normal. Pupils: Pupils are equal, round, and reactive to light. Cardiovascular: Rate and Rhythm: Normal rate and regular rhythm. Pulses: Normal pulses. Heart sounds: Normal heart sounds. No murmur heard. No friction rub. Pulmonary: Effort: Pulmonary effort is normal. No respiratory distress. Breath sounds: Normal breath sounds. No stridor. No wheezing, rhonchi or rales. Chest: Chest wall: No tenderness. Abdominal: General: Abdomen is flat. There is no distension. Palpations: Abdo (more content not included)... [facility] 04-06-2023 Miscellaneous Notes Xray results return. No acute process Reveals OA Reached out and informed patient RICE therapy OTC analgesics Follow up if symptoms persists. documented in this encounter [facility] 04-06-2023 History of Present illness Narrative Images from the original note were not included. This note was created using Sharalike. Subjective Aleisha Johnston is a 67 year old female. 67 year old female with PMH hypercholesterolemia and thrombocytopenia presents with complaints of knee pain. Acute onset 04/03/23 Left knee Endorses she was working in the garden earlier in the day. States that evening she started with pain. Denies known trauma or injury. Endorses that she was using a chair. Occasional pops and clicks. On Wednesday she went to pharmacy and was measured for a knee brace. Has been wearing that with mild relief. 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 I am sure that I have some kind of arthritis The history is provided by the patient. No automotive parts person was used. Left knee injury: No Left knee condition: Acute Left knee severity: Moderate Left knee progression: Unchanged Patient reports that left knee feels unstable. Patient reports feeling left knee popping. Patient reports feeling left knee not locking and not catching. Left job related: No Left knee aggravating factors: Bending of twisting, excessive training, prolonged standing, change in inclines and rapid change of direction. Left knee alleviating factors: Rest (knee compression). PAST MEDICAL HISTORY Diagnosis Date Blood in stool Cataracts, bilateral in [place] Other and unspecified hyperlipidemia Toxemia in PAST SURGICAL HISTORY Procedure Laterality Date APPENDECTOMY remote COLONOSCOPY 2004 COLONOSCOPY FLX DX W/COLLJ SPEC WHEN PFRMD 08/01/2014 Colonoscopy OPTX ANKLE DISLOCATION W/REPAIR/INT/XTRNL FIXJ 2004 ORIF Ankle, left TOTAL ABDOMINAL HYSTERECT W/WO RMVL TUBE OVARY 07/09 Hysterectomy, LARISSA ALLERGIES Bactrim [Sulfamethoxazole-Trimethoprim], Ciprofloxacin, Latex, Metronidazole, Onions [Other], and Processed Fruits [Other] MEDICATIONS cholecalciferol, Vitamin D3, (VITAMIN D3) 1,250 mcg (50,000 unit) cap capsule^Take 1 capsule by mouth two times a week.^Disp: 24 capsule^Rfl: 0 FAMILY HISTORY Problem Relation Age of Onset Heart Mother bypass surgery Cerebral Embolism Father x2 strokes Hypertension Father No Known Problems Sister No Known Problems Sister other (CP) Brother other (luna's esophagus) Brother other (PVD) Brother Alzheimer's Disease Paternal Grandfather Social History Tobacco Use Smoking status: Never Smokeless tobacco: Never Vaping Use Vaping Use: Never used Substance Use Topics Alcohol use: No Drug use: No Review of Systems Constitutional: Negative for activity change, appetite change, chills and diaphoresis. Eyes: Negative for pain, discharge, redness and itching. Respiratory: Negative for apnea, cough, choking, chest tightness and shortness of breath. Cardiovascular: Negative for chest pain, palpitations and leg swelling. Gastrointestinal: Negative for abdominal pain, diarrhea, nausea and vomiting. Musculoskeletal: Negative for arthralgias and back pain. Skin: Negative for color change, pallor, rash and wound. Allergic/Immunologic: Negative for environmental allergies, food allergies and immunocompromised state. Neurological: Negative for dizziness, facial asymmetry, light-headedness, numbness and headaches. Hematological: Negative for adenopathy. Does not bruise/bleed easily. Psychiatric/Behavioral: Negative for agitation and behavioral problems. Objective BP 122/80 Pulse 98 Temp 36.8 C (98.3 F) Resp 16 Wt 83.5 kg (184 lb) SpO2 96% BMI 34.20 kg/m Physical Exam Vitals and nursing note reviewed. Constitutional: General: She is not in acute distress. Appearance: Normal appearance. She is normal weight. She is not ill-appearing, toxic-appearing or diaphoretic. HENT: Head: Normocephalic and atraumatic. Right Ear: Ear canal and external ear normal. Left Ear: Ear canal and external ear normal. Nose: Nose normal. No congestion or rhinorrhea. Mouth/Throat: Mouth: Mucous membranes are moist. Pharynx: No oropharyngeal exudate or posterior oropharyngeal erythema. Eyes: General: Right eye: No discharge. Left eye: No discharge. Extraocular Movements: Extraocular movements intact. Conjunctiva/sclera: Conjunctivae normal. Pupils: Pupils are equal, round, and reactive to light. Cardiovascular: Rate and Rhythm: Normal rate and regular rhythm. Pulses: Normal pulses. Heart sounds: Normal heart sounds. No murmur heard. No friction rub. Pulmonary: Effort: Pulmonary effort is normal. No respiratory distress. Breath sounds: Normal breath sounds. No stridor. No wheezing, rhonchi or rales. Chest: Chest wall: No tenderness. Abdominal: General: Abdomen is flat. There is no distension. Palpations: Abdomen is soft. There is no mass. Tenderness: There is no abdominal tenderness. There is no right CVA tenderness, left CVA tenderness, guarding or rebound. Hernia: No hernia is present. Musculoskeletal: General: Tenderness present. No swelling, deformity or signs of injury. Normal range of motion. Cervical back: Normal range of motion and neck supple. No rigidity. Right lower leg: No edema. Left lower leg: No edema. Legs: Comments: Left patella area with TTP. Flexion and extension intact Negative vagus Negative valus Skin intact Neuro intact. Sensation intact No rashes or lesions. Pulses intact distal. Lymphadenopathy: Cervical: No cervical adenopathy. Skin: General: Skin is warm and dry. Capillary Refill: Capillary refill takes less than 2 seconds. Coloration: Skin is not jaundiced or pale. Findings: No bruising, erythema, lesion or rash. Neurological: General: No focal deficit present. Mental Status: She is alert and oriented to person, place, and time. Cranial Nerves: No cranial nerve deficit. Sensory: No sensory deficit. Motor: No weakness. Coordination: Coordination normal. Gait: Gait normal. Psychiatric: Mood and Affect: Mood normal. Behavior: Behavior normal. Thought Content: Thought content normal. Judgment: Judgment normal. Assessment and Plan ASSESSMENT/PLAN: 1. Acute pain of left knee - ICD9: 719.46, ICD10: M25.562 Onset 04/03 No known trauma or injury - XR KNEE GENERAL 4V AP BOTH/PA BOTH/LAT/MERC LEFT-will obtain xray later today Likely arthritis vs. Knee strain. Declines steroids Will alternate Tylenol and Motrin Continue to use knee brace. F/U for continued symptoms. Thad Liu APRN.PROCESS IMPROVEMENT ENGINEER documented in this encounter [facility] 03-15-2023 Note HNO ID: [id number] Author: Kaylie Poe RT(R) Service: Radiology Author Type: Technologist Type: Progress Notes Filed: 03/15/2023 10:02 AM Note Text: Radiology Service Progress Note PATIENT NAME: Aleisha Johnston DATE OF SERVICE: March 15, 2023 TIME: 9:53 AM PATIENT IDENTITY VERIFICATION COMPLETED USING TWO (2) IDENTIFIERS: Name and Date of confirmed by patient verbally. FALL SCREENING: Has the patient had 2 falls in the last year or 1 fall with injury or currently using an Ambulatory Assistive Device (Walker, Cane, Wheelchair, Crutches, etc.)? No PATIENT GENDER DATA: Female. status: : No status: NO. PATIENT RELEVANT IMPLANT DATA REVIEWED: Yes RADIOLOGY DEPARTMENT: General X-ray: Exam(s) Completed: Chest X-Ray PERIPHERAL IV DATA: Not applicable SIGNED BY: RT Edd(R) March 15, 2023 9:53 AM [facility] 03-15-2023 Note HNO ID: [id number] Author: Dafne Mireles APRN.PROCESS IMPROVEMENT ENGINEER Service: ? Author Type: Nurse Practitioner Type: Progress Notes Filed: 03/16/2023 10:01 AM Note Text: CC: Patient presents with: Recheck: 6 month follow up HPI Aleisha Johnston is a 67 year old female who presents today for routine follow up. Has had ongoing chest pain which she has had for years but is occurring more frequently and more severe in nature. 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 This lasted for 2-3 hours and self resolved. Occurs a few times a week at various times with no specific activity, with eating, but can occur at night. Denies any shortness of breath, sweating, palpitations, nausea, fever, cough, heartburn, or fatigue. States she had a cardiac workup including a normal stress test many years ago. Thinks it was at [place] or [place] possibly 20 years ago. Difficult to remember as it was so long ago. REVIEW OF SYSTEMS General: no fevers, no chills, no night sweats, no recurrent infections, no change in appetite, no change in energy, and no significant changes in weight Respiratory: no cough, no wheezing, no shortness of breath, no hemoptysis Cardiovascular: no chest pain, no palpitations, and no swelling GI: No nausea, vomiting, or diarrhea Neurologic: No headache, weakness, numbness, tingling, dizziness, memory loss, syncope. PAST MEDICAL HISTORY Diagnosis Date Blood in stool Cataracts, bilateral in [place] Other and unspecified hyperlipidemia Toxemia in PAST SURGICAL HISTORY Procedure Laterality Date APPENDECTOMY remote COLONOSCOPY 2004 COLONOSCOPY FLX DX W/COLLJ SPEC WHEN PFRMD 08/01/2014 Colonoscopy OPTX ANKLE DISLOCATION W/REPAIR/INT/XTRNL FIXJ 2004 ORIF Ankle, left TOTAL ABDOMINAL HYSTERECT W/WO RMVL TUBE OVARY 07/09 Hysterectomy, LARISSA ALLERGIES Bactrim [Sulfamethoxazole-Trimethoprim], Ciprofloxacin, Latex, Metronidazole, Onions [Other], and Processed Fruits [Other] MEDICATIONS cholecalciferol, Vitamin D3, (VITAMIN D3) 1,250 mcg (50,000 unit) cap capsule Take 1 capsule by mouth two times a week. FAMILY HISTORY Problem Relation Age of Onset Heart Mother bypass surgery Cerebral Embolism Father x2 strokes Hypertension Father No Known Problems Sister No Known Problems Sister other (CP) Brother other (luna's esophagus) Brother other (PVD) Brother Alzheimer's Disease Paternal Grandfather Social History Tobacco Use Smoking status: Never Smokeless tobacco: Never Vaping Use Vaping Use: Never used Substance Use Topics Alcohol use: No Drug use: No PHYSICAL EXAM BP 132/80 Pulse 60 Resp 16 Wt 82.6 kg (182 lb) BMI 33.83 kg/m? General Appearance: well appearing, in no acute distress, alert Skin: Skin color, texture, turgor normal for age; Eyes: conjunctiva pink and moist, no icterus, sclera white, non-injected Neck: Thyroid normal size and symmetric without palpable nodules, Neck supple, No adenopathy Lymph nodes: No cervical lymphadenopathy and No supraclavicular lymphadenopathy Lungs: Lungs clear to auscultation. No wheezing, rhonchi, rales. Heart: RRR without murmur, gallop, or rubs. No ectopy Health maintenance reviewed with patient: COVID-19 VACCINE(1) Never done DTAP,TDAP,TD(1 - Tdap) Never done SHINGRIX VACCINE(1 of 2) Never done ADVANCE DIRECTIVE DISCUSSION Never done MAMMOGRAM due on 05/04/2023 INFLUENZA(1) due on 04/09/2023 COLORECTAL CANCER SCREENING due on 08/01/2024 DIABETES SCREEN due on 05/04/2025 LIPID SCREEN due on 05/04/2027 BONE DENSITY Completed DEPRESSION ASSESSMENT Completed PNEUMOCOCCAL: 65+ Completed HEPATITIS C SCREENING Discontinued DATA REVIEWED: No new labs EKG Interpretation: RHYTHM: Normal sinus rhythm at 64 beats per minute AXIS: Normal axis INTERVALS: Normal PA interval QRS COMPLEX: Normal ST SEGMENT: Normal ST-T segments QT INTERVAL: Normal COMPARED WITH PRIOR: None available ASSESSMENT/PLAN: 1. Chest pain, unspecified type - ICD9: 786.50, ICD10: R07.9 (primary diagnosis) - unsure on cause - will look at cardiac possibility and if no concerns found will evaluate for other possible causes - go to Er for further chest pain, shortness of breath, palpitations or other urgent concerns. - risk factors of family history of CAD and personal history of HLD - no record for cardiac workup at [facility] or [facility] - ECG COMPLETE - ECHO - PERFLUTREN LIPID MICROSPHERES 1.1 MG/ML INJECTION IN NS 10 ML - SODIUM CHLORIDE 0.9 % (FLUSH) INJECTION SYRINGE - CBC + DIFF - COMP METABOLIC PANEL - MAGNESIUM BLD - LIPID PANEL BASIC - HIGH SENSITIVITY TROPONIN T - XR CHEST 2V FRONTAL/LAT - follow up in 4-6 weeks 2. Breast cancer screening by mammogram - ICD9: V76.12, ICD10: Z12.31 - PAM SCREENING 3. Vitamin D deficiency - ICD9: 268.9, ICD10: E55.9 (more content not included)... [facility] 03-15-2023 History of Present illness Narrative CC: Patient presents with: Recheck: 6 month follow up HPI Aleisha Johnston is a 67 year old female who presents today for routine follow up. Has had ongoing chest pain which she has had for years but is occurring more frequently and more severe in nature. 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 This lasted for 2-3 hours and self resolved. Occurs a few times a week at various times with no specific activity, with eating, but can occur at night. Denies any shortness of breath, sweating, palpitations, nausea, fever, cough, heartburn, or fatigue. States she had a cardiac workup including a normal stress test many years ago. Thinks it was at [place] possibly 20 years ago. Difficult to remember as it was so long ago. REVIEW OF SYSTEMS General: no fevers, no chills, no night sweats, no recurrent infections, no change in appetite, no change in energy, and no significant changes in weight Respiratory: no cough, no wheezing, no shortness of breath, no hemoptysis Cardiovascular: no chest pain, no palpitations, and no swelling GI: No nausea, vomiting, or diarrhea Neurologic: No headache, weakness, numbness, tingling, dizziness, memory loss, syncope. PAST MEDICAL HISTORY Diagnosis Date Blood in stool Cataracts, bilateral in [place] Other and unspecified hyperlipidemia Toxemia in PAST SURGICAL HISTORY Procedure Laterality Date APPENDECTOMY remote COLONOSCOPY 2004 COLONOSCOPY FLX DX W/COLLJ SPEC WHEN PFRMD 08/01/2014 Colonoscopy OPTX ANKLE DISLOCATION W/REPAIR/INT/XTRNL FIXJ 2004 ORIF Ankle, left TOTAL ABDOMINAL HYSTERECT W/WO RMVL TUBE OVARY 07/09 Hysterectomy, LARISSA ALLERGIES Bactrim [Sulfamethoxazole-Trimethoprim], Ciprofloxacin, Latex, Metronidazole, Onions [Other], and Processed Fruits [Other] MEDICATIONS cholecalciferol, Vitamin D3, (VITAMIN D3) 1,250 mcg (50,000 unit) cap capsule Take 1 capsule by mouth two times a week. FAMILY HISTORY Problem Relation Age of Onset Heart Mother bypass surgery Cerebral Embolism Father x2 strokes Hypertension Father No Known Problems Sister No Known Problems Sister other (CP) Brother other (luna's esophagus) Brother other (PVD) Brother Alzheimer's Disease Paternal Grandfather Social History Tobacco Use Smoking status: Never Smokeless tobacco: Never Vaping Use Vaping Use: Never used Substance Use Topics Alcohol use: No Drug use: No PHYSICAL EXAM BP 132/80 Pulse 60 Resp 16 Wt 82.6 kg (182 lb) BMI 33.83 kg/m General Appearance: well appearing, in no acute distress, alert Skin: Skin color, texture, turgor normal for age; Eyes: conjunctiva pink and moist, no icterus, sclera white, non-injected Neck: Thyroid normal size and symmetric without palpable nodules, Neck supple, No adenopathy Lymph nodes: No cervical lymphadenopathy and No supraclavicular lymphadenopathy Lungs: Lungs clear to auscultation. No wheezing, rhonchi, rales. Heart: RRR without murmur, gallop, or rubs. No ectopy Health maintenance reviewed with patient: COVID-19 VACCINE(1) Never done DTAP,TDAP,TD(1 - Tdap) Never done SHINGRIX VACCINE(1 of 2) Never done ADVANCE DIRECTIVE DISCUSSION Never done MAMMOGRAM due on 05/04/2023 INFLUENZA(1) due on 04/09/2023 COLORECTAL CANCER SCREENING due on 08/01/2024 DIABETES SCREEN due on 05/04/2025 LIPID SCREEN due on 05/04/2027 BONE DENSITY Completed DEPRESSION ASSESSMENT Completed PNEUMOCOCCAL: 65+ Completed HEPATITIS C SCREENING Discontinued DATA REVIEWED: No new labs EKG Interpretation: RHYTHM: Normal sinus rhythm at 64 beats per minute AXIS: Normal axis INTERVALS: Normal PA interval QRS COMPLEX: Normal ST SEGMENT: Normal ST-T segments QT INTERVAL: Normal COMPARED WITH PRIOR: None available ASSESSMENT/PLAN: 1. Chest pain, unspecified type - ICD9: 786.50, ICD10: R07.9 (primary diagnosis) - unsure on cause - will look at cardiac possibility and if no concerns found will evaluate for other possible causes - go to Er for further chest pain, shortness of breath, palpitations or other urgent concerns. - risk factors of family history of CAD and personal history of HLD - no record for cardiac workup at [facility] - ECG COMPLETE - ECHO - PERFLUTREN LIPID MICROSPHERES 1.1 MG/ML INJECTION IN NS 10 ML - SODIUM CHLORIDE 0.9 % (FLUSH) INJECTION SYRINGE - CBC + DIFF - COMP METABOLIC PANEL - MAGNESIUM BLD - LIPID PANEL BASIC - HIGH SENSITIVITY TROPONIN T - XR CHEST 2V FRONTAL/LAT - follow up in 4-6 weeks 2. Breast cancer screening by mammogram - ICD9: V76.12, ICD10: Z12.31 - PAM SCREENING 3. Vitamin D deficiency - ICD9: 268.9, ICD10: E55.9 - VITAMIN D 25 HYDROXY Prescription instructions reviewed with patient as applicable. Potential red flag symptoms discussed with the patient. Reviewed appropriate action plan to take if red flag symptoms occur. Patient agreeable to treatment plan. Dafne Mireles APRN.CNP documented in this encounter [facility] 09-07-2022 Note HNO ID: [id number] Author: Sue Vidal MD Service: ? Author Type: Physician Type: Progress Notes Filed: 09/07/2022 5:27 PM Note Text: Reason for Visit Patient presents with: Follow Up: lab results Aleisha Johnston is a 67 year old female who presents here today for Above Complaints.. Health Maintenance COVID-19 VACCINE(1) DTAP,TDAP,TD(1 - Tdap) SHINGRIX VACCINE(1 of 2) PNEUMOCOCCAL: 65+(2 - PPSV23 if available, else PCV20) INFLUENZA(1) ADVANCE DIRECTIVE DISCUSSION DEPRESSION ASSESSMENT HPI Please inform patient of very low vitamin d levels, We are giving her replacement doses, sent to her regular pharmacy. This might help in the overall mood and energy. He needs to take it immediately after eating. We discussed replacement after that. The 10-year ASCVD risk score (Mojgan PRETTY, et al., 2019) is: 7.3% Values used to calculate the score: Age: 67 years Sex: Female Is Non- : No Diabetic: No Tobacco smoker: No Systolic Blood Pressure: 118 mmHg Is BP treated: No HDL Cholesterol: 61 mg/dL Total Cholesterol: 216 mg/dL We discussed cutting down red meat and dairy products. Reviewed her labs with her. We discussed her bone density, she has osteopenia and would benefit from bisphosphonate Been to [employer], and had it frozen another 2 times and now she is doing better No problem-specific Assessment AND Plan notes found for this encounter. PAST MEDICAL HISTORY Diagnosis Date Blood in stool Cataracts, bilateral in [place] Other and unspecified hyperlipidemia Toxemia in PAST SURGICAL HISTORY Procedure Laterality Date APPENDECTOMY remote COLONOSCOPY 2004 COLONOSCOPY FLX DX W/COLLJ SPEC WHEN PFRMD 08/01/2014 Colonoscopy OPTX ANKLE DISLOCATION W/REPAIR/INT/XTRNL FIXJ 2004 ORIF Ankle, left TOTAL ABDOMINAL HYSTERECT W/WO RMVL TUBE OVARY 07/09 Hysterectomy, LARISSA FAMILY HISTORY Problem Relation Age of Onset Heart Mother bypass surgery Cerebral Embolism Father x2 strokes Hypertension Father No Known Problems Sister No Known Problems Sister other (CP) Brother other (luna's esophagus) Brother other (PVD) Brother Alzheimer's Disease Paternal Grandfather Social History Tobacco Use Smoking status: Never Smokeless tobacco: Never Vaping Use Vaping Use: Never used Substance Use Topics Alcohol use: No Drug use: No Past medical history, appointments, medications, allergies reviewed. Pertinent Lab/Diagnostic Studies are reviewed and discussed today Current Outpatient Medications: cholecalciferol, Vitamin D3, (VITAMIN D3) 1,250 mcg (50,000 unit) cap capsule Review of Systems CONSTITUTIONAL: No fevers, chills night sweats, unintended weight loss CARDIOVASCULAR: No chest pain, dyspnea, palpitations, orthopnea, PND, ankle edema. PULM: No dyspnea, unexplained cough. GI: No dysphagia/odynophagia, problematic reflux, constipation, diarrhea, changes in stool habits, hematochezia, melena. : No new urinary complaints, including dysuria, gross hematuria or pyuria. NEURO: No new balance problems, peripheral weakness/paresthesias or numbness of concern. Physical Exam BP 118/58 (BP Site: Left Arm, BP Position: Sitting, BP Cuff Size: Large Adult) Pulse 80 Temp (!) 35.9 ?C (96.6 ?F) Resp 12 Ht 156.2 cm (5' 1.5 ) Wt 83 kg (183 lb) SpO2 96% BMI 34.02 kg/m? General appearance: Well appearing, alert, in no acute distress, well nourished. Skin: Skin color, texture, turgor normal, no suspicious rashes or lesions Head: Normocephalic, no masses, lesions, tenderness or abnormalities Eyes: Anicteric sclera. Pupils are equally round and reactive to light. Extraocular movements are intact. Lungs: Lungs clear to auscultation. No wheezing, rhonchi, rales Heart: RRR without murmur, gallop, or rubs. Extremities: No deformities, edema, skin discoloration, clubbing or cyanosis. Good capillary refill. ASSESSMENT/PLAN: 1. Pure hypercholesterolemia - ICD9: 272.0, ICD10: E78.00 (primary diagnosis) Stable 2. Thrombocytopenia (HCC) - ICD9: 287.5, ICD10: D69.6 improved 3. Vitamin D deficiency - ICD9: 268.9, ICD10: E55.9 Encouraged to take otc medication when done with our replacement doses 4. Need for vaccination - ICD9: V05.9, ICD10: Z23 - PNEUMOCOCCAL IMMUNIZATION PPSV 23 Sue Vidal MD [facility] 09-07-2022 History of Present illness Narrative Reason for Visit Patient presents with: Follow Up: lab results Aleisha Johnston is a 67 year old female who presents here today for Above Complaints.. Health Maintenance COVID-19 VACCINE(1) DTAP,TDAP,TD(1 - Tdap) SHINGRIX VACCINE(1 of 2) PNEUMOCOCCAL: 65+(2 - PPSV23 if available, else PCV20) INFLUENZA(1) ADVANCE DIRECTIVE DISCUSSION DEPRESSION ASSESSMENT HPI Please inform patient of very low vitamin d levels, We are giving her replacement doses, sent to her regular pharmacy. This might help in the overall mood and energy. He needs to take it immediately after eating. We discussed replacement after that. The 10-year ASCVD risk score (Mojgan PRETTY, et al., 2019) is: 7.3% Values used to calculate the score: Age: 67 years Sex: Female Is Non- : No Diabetic: No Tobacco smoker: No Systolic Blood Pressure: 118 mmHg Is BP treated: No HDL Cholesterol: 61 mg/dL Total Cholesterol: 216 mg/dL We discussed cutting down red meat and dairy products. Reviewed her labs with her. We discussed her bone density, she has osteopenia and would benefit from bisphosphonate Been to [facility], and had it frozen another 2 times and now she is doing better No problem-specific Assessment & Plan notes found for this encounter. PAST MEDICAL HISTORY Diagnosis Date Blood in stool Cataracts, bilateral in [place] Other and unspecified hyperlipidemia Toxemia in PAST SURGICAL HISTORY Procedure Laterality Date APPENDECTOMY remote COLONOSCOPY 2004 COLONOSCOPY FLX DX W/COLLJ SPEC WHEN PFRMD 08/01/2014 Colonoscopy OPTX ANKLE DISLOCATION W/REPAIR/INT/XTRNL FIXJ 2004 ORIF Ankle, left TOTAL ABDOMINAL HYSTERECT W/WO RMVL TUBE OVARY 07/09 Hysterectomy, LARISSA FAMILY HISTORY Problem Relation Age of Onset Heart Mother bypass surgery Cerebral Embolism Father x2 strokes Hypertension Father No Known Problems Sister No Known Problems Sister other (CP) Brother other (luna's esophagus) Brother other (PVD) Brother Alzheimer's Disease Paternal Grandfather Social History Tobacco Use Smoking status: Never Smokeless tobacco: Never Vaping Use Vaping Use: Never used Substance Use Topics Alcohol use: No Drug use: No Past medical history, appointments, medications, allergies reviewed. Pertinent Lab/Diagnostic Studies are reviewed and discussed today Current Outpatient Medications: cholecalciferol, Vitamin D3, (VITAMIN D3) 1,250 mcg (50,000 unit) cap capsule Review of Systems CONSTITUTIONAL: No fevers, chills night sweats, unintended weight loss CARDIOVASCULAR: No chest pain, dyspnea, palpitations, orthopnea, PND, ankle edema. PULM: No dyspnea, unexplained cough. GI: No dysphagia/odynophagia, problematic reflux, constipation, diarrhea, changes in stool habits, hematochezia, melena. : No new urinary complaints, including dysuria, gross hematuria or pyuria. NEURO: No new balance problems, peripheral weakness/paresthesias or numbness of concern. Physical Exam BP 118/58 (BP Site: Left Arm, BP Position: Sitting, BP Cuff Size: Large Adult) Pulse 80 Temp (!) 35.9 C (96.6 F) Resp 12 Ht 156.2 cm (5' 1.5 ) Wt 83 kg (183 lb) SpO2 96% BMI 34.02 kg/m General appearance: Well appearing, alert, in no acute distress, well nourished. Skin: Skin color, texture, turgor normal, no suspicious rashes or lesions Head: Normocephalic, no masses, lesions, tenderness or abnormalities Eyes: Anicteric sclera. Pupils are equally round and reactive to light. Extraocular movements are intact. Lungs: Lungs clear to auscultation. No wheezing, rhonchi, rales Heart: RRR without murmur, gallop, or rubs. Extremities: No deformities, edema, skin discoloration, clubbing or cyanosis. Good capillary refill. ASSESSMENT/PLAN: 1. Pure hypercholesterolemia - ICD9: 272.0, ICD10: E78.00 (primary diagnosis) Stable 2. Thrombocytopenia (HCC) - ICD9: 287.5, ICD10: D69.6 improved 3. Vitamin D deficiency - ICD9: 268.9, ICD10: E55.9 Encouraged to take otc medication when done with our replacement doses 4. Need for vaccination - ICD9: V05.9, ICD10: Z23 - PNEUMOCOCCAL IMMUNIZATION PPSV 23 Sue Vidal MD documented in this encounter [facility] 05-15-2022 History of Present illness Narrative Reason for Visit Patient presents with: Recheck: warts on hands and review test result Aleisha Johnston is a 66 year old female who presents here today for Above Complaints.. Health Maintenance COVID-19 VACCINE(1) DTAP,TDAP,TD(1 - Tdap) SHINGRIX VACCINE(1 of 2) PNEUMOCOCCAL: 65+(2 - PPSV23 or PCV20) ADVANCE DIRECTIVE DISCUSSION DEPRESSION ASSESSMENT INFLUENZA(1) HPI Patient had warts that were frozen last visit. They turned black and needed a bandaid on it. And seems to disappear but then came back. She did change her gloves. We discussed blood work . She did have a life screening. The 10-year ASCVD risk score (Mojgan PRETTY, et al., 2019) is: 6.2% Values used to calculate the score: Age: 66 years Sex: Female Is Non- : No Diabetic: No Tobacco smoker: No Systolic Blood Pressure: 114 mmHg Is BP treated: No HDL Cholesterol: 61 mg/dL Total Cholesterol: 216 mg/dL She has lost a little weight recently. We discussed her bone density, she has osteopenia and would benefit from bisphosphonate No problem-specific Assessment & Plan notes found for this encounter. PAST MEDICAL HISTORY Diagnosis Date Blood in stool Cataracts, bilateral in [place] Other and unspecified hyperlipidemia Toxemia in PAST SURGICAL HISTORY Procedure Laterality Date APPENDECTOMY remote COLONOSCOPY 2004 COLONOSCOPY FLX DX W/COLLJ SPEC WHEN PFRMD 08/01/2014 Colonoscopy OPTX ANKLE DISLOCATION W/REPAIR/INT/XTRNL FIXJ 2004 ORIF Ankle, left TOTAL ABDOMINAL HYSTERECT W/WO RMVL TUBE OVARY 07/09 Hysterectomy, LARISSA FAMILY HISTORY Problem Relation Age of Onset Heart Mother bypass surgery Cerebral Embolism Father x2 strokes Hypertension Father No Known Problems Sister No Known Problems Sister other (CP) Brother other (luna's esophagus) Brother other (PVD) Brother Alzheimer's Disease Paternal Grandfather Social History Tobacco Use Smoking status: Never Smokeless tobacco: Never Vaping Use Vaping Use: Never used Substance Use Topics Alcohol use: No Drug use: No Past medical history, appointments, medications, allergies reviewed. Pertinent Lab/Diagnostic Studies are reviewed and discussed today Current Outpatient Medications: cholecalciferol, Vitamin D3, (VITAMIN D3) 1,250 mcg (50,000 unit) cap capsule Review of Systems CONSTITUTIONAL: No fevers, chills night sweats, unintended weight loss CARDIOVASCULAR: No chest pain, dyspnea, palpitations, orthopnea, PND, ankle edema. PULM: No dyspnea, unexplained cough. GI: No dysphagia/odynophagia, problematic reflux, constipation, diarrhea, changes in stool habits, hematochezia, melena. : No new urinary complaints, including dysuria, gross hematuria or pyuria. NEURO: No new balance problems, peripheral weakness/paresthesias or numbness of concern. Physical Exam BP 114/72 (BP Site: Left Arm, BP Position: Sitting, BP Cuff Size: Large Adult) Pulse 83 Temp 36.4 C (97.6 F) Resp 14 Ht 156.2 cm (5' 1.5 ) Wt 82.6 kg (182 lb) SpO2 96% BMI 33.83 kg/m General appearance: Well appearing, alert, in no acute distress, well nourished. Skin: has one large lesion on the left little finger, and 4 smaller lesions on the palms and the finger. The right hand has 5 smaller lesions on different parts Head: Normocephalic, no masses, lesions, tenderness or abnormalities Eyes: Anicteric sclera. Pupils are equally round and reactive to light. Extraocular movements are intact. Lungs: Lungs clear to auscultation. No wheezing, rhonchi, rales Heart: RRR without murmur, gallop, or rubs. Extremities: No deformities, edema, skin discoloration, clubbing or cyanosis. Good capillary refill. ASSESSMENT/PLAN: 1. Thrombocytopenia (HCC) - ICD9: 287.5, ICD10: D69.6 (primary diagnosis) Its mildly low, we will have to recheck it in 3 months, as she was good before. To make sure its not a lab error - CBC + DIFF - CBC + DIFF 2. Other viral warts - ICD9: 078.19, ICD10: B07.8 3 rounds of nitrogen therapy was given to the patient On 5 lesion on both hand - CONSULT TO DERMATOLOGY 3. Osteopenia, unspecified location - ICD9: 733.90, ICD10: M85.80 We discussed bisphosphonates. Went over the side effect profile for the drug with the patient, mentioned every one of it , discussed appropriate concerns , alternatives and benefits of the drug. She will think of it and get back to me in 3 months when she comes for an appointment. 4. Vitamin D deficiency - ICD9: 268.9, ICD10: E55.9 VITAMIN D 25 HYDROXY Sue Vidal MD documented in this encounter [facility] 05-04-2022 Miscellaneous Notes May 04, 2022 PID: [id number] Aleisha Johnston [address] [place] [address] Dear Ms. Johnston, We are pleased to inform you that the results of your recent breast imaging exam on 05/04/2022 are normal. Early detection of cancer is very important. We also understand recommendations regarding breast cancer screening are controversial. Please discuss with your primary care provider which strategy is best for you and whether a mammogram is right for you. Your imaging studies and report will be kept on file at [facility] as part of your permanent medical record and are available for your continuing care. Thank you for allowing us to help in meeting your health care needs. Sincerely, Dr. [place] Interpreting Radiologist [facility] (Normal over 40) documented in this encounter [facility] 02-03-2022 History of Present illness Narrative Reason for Visit Patient presents with: Established Patient: cryo warts on hands Aleisha Johnston is a 66 year old female who presents here today for Above Complaints.. Health Maintenance COVID-19 VACCINE(1) DEPRESSION SCREENING DTAP,TDAP,TD(1 - Tdap) SHINGRIX VACCINE(1 of 2) BONE DENSITY PNEUMOCOCCAL: 65+(2 - PPSV23 or PCV20) MAMMOGRAM ADVANCE DIRECTIVE DISCUSSION Viral warts: for the past 6 months she had one wart on the little finger, but slowly it started increasing in size, She was not too concerned but then they spread quickly to 3 other fingers and she would like them taken care of. She does a lot of gardening and wears gardening gloves, she sweats in them, I think those could be a cause of sudden increase in the warts Asked her to discard and use new one and froze the ones today Procedure: freezing of hand warts. The right thumb and the left hand had totally around 10 warts that were frozen. No problem-specific Assessment & Plan notes found for this encounter. PAST MEDICAL HISTORY Diagnosis Date Blood in stool Cataracts, bilateral in [place] Other and unspecified hyperlipidemia Toxemia in PAST SURGICAL HISTORY Procedure Laterality Date APPENDECTOMY remote COLONOSCOPY 2004 COLONOSCOPY FLX DX W/COLLJ SPEC WHEN PFRMD 08/01/2014 Colonoscopy OPTX ANKLE DISLOCATION W/REPAIR/INT/XTRNL FIXJ 2004 ORIF Ankle, left TOTAL ABDOMINAL HYSTERECT W/WO RMVL TUBE OVARY 07/09 Hysterectomy, LARISSA FAMILY HISTORY Problem Relation Age of Onset Heart Mother bypass surgery Cerebral Embolism Father x2 strokes Hypertension Father No Known Problems Sister No Known Problems Sister other (CP) Brother other (luna's esophagus) Brother other (PVD) Brother Alzheimer's Disease Paternal Grandfather Social History Tobacco Use Smoking status: Never Smoker Smokeless tobacco: Never Used Vaping Use Vaping Use: Never used Substance Use Topics Alcohol use: No Drug use: No Past medical history, appointments, medications, allergies reviewed. Pertinent Lab/Diagnostic Studies are reviewed and discussed today Current Outpatient Medications: cholecalciferol, Vitamin D3, (VITAMIN D3) 1,250 mcg (50,000 unit) cap capsule Review of Systems CONSTITUTIONAL: No fevers, chills night sweats, unintended weight loss CARDIOVASCULAR: No chest pain, dyspnea, palpitations, orthopnea, PND, ankle edema. PULM: No dyspnea, unexplained cough. GI: No dysphagia/odynophagia, problematic reflux, constipation, diarrhea, changes in stool habits, hematochezia, melena. : No new urinary complaints, including dysuria, gross hematuria or pyuria. NEURO: No new balance problems, peripheral weakness/paresthesias or numbness of concern. Physical Exam BP 120/66 (BP Site: Left Arm, BP Position: Sitting, BP Cuff Size: Large Adult) Pulse 75 Temp 36.1 C (97 F) Resp 12 Ht 156.2 cm (5' 1.5 ) Wt 83.9 kg (185 lb) SpO2 96% BMI 34.39 kg/m General appearance: Well appearing, alert, in no acute distress, well nourished. Skin: left hand:medial aspect of the little finger, ring finger as around 5 small around 2 mm diameter trevor cluter near the proximal phallanx. And then there is one in the web on the middle and ring finger, Right hand there is a 2 mm diam one on the thumb. Head: Normocephalic, no masses, lesions, tenderness or abnormalities Eyes: Anicteric sclera. Pupils are equally round and reactive to light. Extraocular movements are intact. ASSESSMENT/PLAN: 1. Other viral warts - ICD9: 078.19, ICD10: B07.8 3 layers of liquid nitrogen was given to the patient. Sue Vidal MD documented in this encounter [facility] 02-02-2022 History of Present illness Narrative Reason for Visit Patient presents with: Derm Problem: warts on her left hand on her fingers- new developing Aleisha Johnston is a 66 year old female who presents here today for Above Complaints.. Health Maintenance COVID-19 VACCINE(1) DEPRESSION SCREENING DTAP,TDAP,TD(1 - Tdap) SHINGRIX VACCINE(1 of 2) BONE DENSITY PNEUMOCOCCAL: 65+(2 - PPSV23 or PCV20) MAMMOGRAM ADVANCE DIRECTIVE DISCUSSION HPI Hyperlipidemia: her lipids are on the higher side, lds is 153, she has not made changes to your diet or lifestyle much. She eats a lot of cheese, does eat some red meat around 2 /3 times a week. She is not exercising much at all regularly but she has a big vegetable garden, she has a dozen different peppers, red beats, cabbage etc. She spends a lot of time doing that. We discussed that gardening is good exercise. Still working at [employer]. Patient is happy working and in her garden. The 10-year ASCVD risk score (Minh BORJA Jr., et al., 2013) is: 6.6% Values used to calculate the score: Age: 66 years Sex: Female Is Non- : No Diabetic: No Tobacco smoker: No Systolic Blood Pressure: 116 mmHg Is BP treated: No HDL Cholesterol: 62 mg/dL Total Cholesterol: 242 mg/dL Reviewed her past bone density a couple years ago, she was osteopenic at that time, ordering today for monitoring it. No problem-specific Assessment & Plan notes found for this encounter. PAST MEDICAL HISTORY Diagnosis Date Blood in stool Cataracts, bilateral in [place] Other and unspecified hyperlipidemia Toxemia in PAST SURGICAL HISTORY Procedure Laterality Date APPENDECTOMY remote COLONOSCOPY 2004 COLONOSCOPY FLX DX W/COLLJ SPEC WHEN PFRMD 08/01/2014 Colonoscopy OPTX ANKLE DISLOCATION W/REPAIR/INT/XTRNL FIXJ 2004 ORIF Ankle, left TOTAL ABDOMINAL HYSTERECT W/WO RMVL TUBE OVARY 07/09 Hysterectomy, LARISSA FAMILY HISTORY Problem Relation Age of Onset Heart Mother bypass surgery Cerebral Embolism Father x2 strokes Hypertension Father No Known Problems Sister No Known Problems Sister other (CP) Brother other (luna's esophagus) Brother other (PVD) Brother Alzheimer's Disease Paternal Grandfather Social History Tobacco Use Smoking status: Never Smoker Smokeless tobacco: Never Used Vaping Use Vaping Use: Never used Substance Use Topics Alcohol use: No Drug use: No Past medical history, appointments, medications, allergies reviewed. Pertinent Lab/Diagnostic Studies are reviewed and discussed today Current Outpatient Medications: cholecalciferol, Vitamin D3, (VITAMIN D3) 1,250 mcg (50,000 unit) cap capsule Review of Systems CONSTITUTIONAL: No fevers, chills night sweats, unintended weight loss CARDIOVASCULAR: No chest pain, dyspnea, palpitations, orthopnea, PND, ankle edema. PULM: No dyspnea, unexplained cough. GI: No dysphagia/odynophagia, problematic reflux, constipation, diarrhea, changes in stool habits, hematochezia, melena. : No new urinary complaints, including dysuria, gross hematuria or pyuria. NEURO: No new balance problems, peripheral weakness/paresthesias or numbness of concern. Physical Exam BP 116/74 Pulse (!) 54 Resp 16 Wt 84.1 kg (185 lb 6.4 oz) SpO2 97% BMI 34.46 kg/m General appearance: Well appearing, alert, in no acute distress, well nourished. Skin: Skin color, texture, turgor normal, no suspicious rashes or lesions Head: Normocephalic, no masses, lesions, tenderness or abnormalities Eyes: Anicteric sclera. Pupils are equally round and reactive to light. Extraocular movements are intact. Lungs: Lungs clear to auscultation. No wheezing, rhonchi, rales Heart: RRR without murmur, gallop, or rubs. Extremities: No deformities, edema, skin discoloration, clubbing or cyanosis. Good capillary refill. ASSESSMENT/PLAN: 1. Osteopenia of multiple sites - ICD9: 733.90, ICD10: M85.89 (primary diagnosis) - Reviewed the need for Calcium and Vitamin D supplements and weight bearing exercise as tolerated - DXA-AXIAL SKELETON 2. Pure hypercholesterolemia - ICD9: 272.0, ICD10: E78.00 - CBC + DIFF - LIPID PANEL BASIC 3. Encounter for screening examination for impaired glucose regulation and diabetes mellitus - ICD9: V77.1, ICD10: Z13.1 - COMP METABOLIC PANEL Sue Vidal MD documented in this encounter [facility] Diagnosis Other viral warts- Primary [facility] Diagnosis Thrombocytopenia (HCC)- Primary Thrombocytopenia, unspecified Other viral warts Osteopenia, unspecified location Vitamin D deficiency Unspecified vitamin D deficiency [facility] Diagnosis Pure hypercholesterolemia- Primary Thrombocytopenia (HCC) Thrombocytopenia, unspecified Vitamin D deficiency Unspecified vitamin D deficiency Need for vaccination Need for prophylactic vaccination and inoculation against unspecified single disease [facility] Diagnosis Chest pain, unspecified type- Primary Breast cancer screening by mammogram Vitamin D deficiency Unspecified vitamin D deficiency [facility] Diagnosis Acute pain of left knee- Primary [facility] Diagnosis Acute pain of left knee- Primary Chest pain, unspecified type Elevated troponin Other abnormal blood chemistry Pure hypercholesterolemia documented in this encounter [facility] for referral (narrative)* Outpatient Procedure (Routine) - Closed Specialty Diagnoses / Procedures Referred By Contac t Referred To [facility] Diagnoses Chest pain, unspecified type Procedures [facility]-MODE COMPL SPEC&COLR D Dafne Mireles APRN.PROCESS IMPROVEMENT ENGINEER [address] [place] [address] [facility] [place] [address] [place] [id number] Referral ID Status Reason Start Date Expiration Date V isits Requested Visits Authorized [id number] Closed Auto-Generate d Referral 03/15/2023 03/14/2024 1 1 * Outpatient Procedure (Routine) - Authorized Specialty Diagnoses / Procedures Referred By Contac t Referred To [facility] Diagnoses Chest pain, unspecified type Procedures ECG COMPLETE ECG ROUTINE ECG W/LEAST 12 LDS W/I&R Dafne Mireles APRN.PROCESS IMPROVEMENT ENGINEER [address] [place] [address] [facility] [place] [address] [place] [id number] Referral ID Status Reason Start Date Expiration Date Visits Requested Visits Authorized [id number] Authorized Auto-Generat ed Referral 03/15/2023 03/14/2024 1 1 * Diagnostic Procedure Only (Routine) - Authorized Specialty Diagnoses / Procedures Referred By David t Referred To Contact [facility] Diagnoses Breast cancer screening by mammogram Procedures PAM SCREENING SCREENING MAMMOGRAPHY BI 2-VIEW BREAST INC CAD Dfane Mireles APRN.PROCESS IMPROVEMENT ENGINEER [address] [place] [address] [facility] [address] [place] [address] Referral ID Status Reason Start Date Expiration Date Visits Requested Visits Authorized [id number] Authorized Auto-Generat ed Referral 03/15/2023 04/13/2024 1 1 [facility] for referral (narrative)* Diagnostic Procedure Only (Urgent) - Closed Specialty Diagnoses / Procedures Referred By Contac t Referred To Contact XR IMAGING Diagnoses Acute pain of left knee Procedures XR KNEE GENERAL 4V AP BOTH/PA BOTH/LAT/MERC LEFT RADIOLOGIC EXAM KNEE COMPLETE 4/MORE VIEWS Thad Liu APRN.PROCESS IMPROVEMENT ENGINEER [address] [place] [address] [facility] [id number] Referral ID Status Reason Start Date Expiration Date V isits Requested Visits Authorized [id number] Closed Auto-Generate d Referral 04/06/2023 05/05/2024 1 1 [facility] Summary Purpose Family History No Family History Records FoundNo Family History Records FoundNo Family History Records FoundNo Family History Records Found Advance Directives No Advanced Directives Records FoundNo Advanced Directives Records FoundNo Advanced Directives Records FoundNo Advanced Directives Records Found Reason for Referral Specialty Diagnoses / Procedures Referred By Contac t Referred To Contact Dermatology Diagnoses Other viral warts Procedures CONSULT TO DERMATOLOGY Sue Vidal MD [address] [place] [address] Referral ID Status Reason Start Date Expiration Date Visits Requested Visits Authorized [id number] Ref Not Required PCP Requested Referral 05/15/2022 05/15/2023 1 1 Specialty Diagnoses / Procedures Referred By Contac t Referred To Contact [facility] Diagnoses Acute pain of left knee Procedures CONSULT TO PHYSICAL THERAPY PHYSICAL THERAPY EVALUATION HIGH COMPLEX 45 MINS Older, APRN. DafnePROCESS IMPROVEMENT ENGINEER [address] [place] [address] [facility] [place] [address] [place] [address] Referral ID Status Reason Start Date Expiration Date Visits Requested Visits Authorized [id number] Authorized PCP Requested Referral Auto-Generate d Referral 04/26/2023 04/25/2024 99 99 Specialty Diagnoses / Procedures Referred By Contac t Referred To Contact Orthopedics Diagnoses Acute pain of left knee Procedures CONSULT TO ORTHOPAEDICS OFFICE/OUTPATIENT NEW HIGH MDM 60-74 MINUTES Older, APRN. DafnePROCESS IMPROVEMENT ENGINEER [address] [place] [address] Referral ID Status Reason Start Date Expiration Date Visits Requested Visits Authorized [id number] Authorized PCP Requested Referral 04/26/2023 04/25/2024 1 1 Additional Source Comments INFORMATION SOURCE (unrecogn ized section and content) DATE CREATED AUTHOR AUTHOR'S ORGANIZ ATION 02/01/2018 [facility] DATE CREATED AUTHOR AUTHOR'S ORGANIZ ATION 02/10/2018 [facility] ([place]) DATE CREATED AUTHOR AUTHOR'S ORGANIZ ATION 08/23/2023 [facility] Source Comments (unrecognize d section and content) In the event this informatio n is protected by the Federal Confidentiality of Alcohol and Drug Abuse Patient Records regulations: The Federal rules restrict any use of the information to criminally investigate or prosecute any alcohol or drug abuse patient.[facility] the event this information is protected by the Federal Confidentiality of Alcohol and Drug Abuse Patient Records regulations: The Federal rules restrict any use of the information to criminally investigate or prosecute any alcohol or drug abuse patient.[facility] the event this information is protected by the Federal Confidentiality of Alcohol and Drug Abuse Patient Records regulations: The Federal rules restrict any use of the information to criminally investigate or prosecute any alcohol or drug abuse patient.[facility] the event this information is protected by the Federal Confidentiality of Alcohol and Drug Abuse Patient Records regulations: The Federal rules restrict any use of the information to criminally investigate or prosecute any alcohol or drug abuse patient.[facility] the event this information is protected by the Federal Confidentiality of Alcohol and Drug Abuse Patient Records regulations: The Federal rules restrict any use of the information to criminally investigate or prosecute any alcohol or drug abuse patient.[facility] the event this information is protected by the Federal Confidentiality of Alcohol and Drug Abuse Patient Records regulations: The Federal rules restrict any use of the information to criminally investigate or prosecute any alcohol or drug abuse patient.[facility] the event this information is protected by the Federal Confidentiality of Alcohol and Drug Abuse Patient Records regulations: The Federal rules restrict any use of the information to criminally investigate or prosecute any alcohol or drug abuse patient.[facility] the event this information is protected by the Federal Confidentiality of Alcohol and Drug Abuse Patient Records regulations: The Federal rules restrict any use of the information to criminally investigate or prosecute any alcohol or drug abuse patient.[facility] the event this information is protected by the Federal Confidentiality of Alcohol and Drug Abuse Patient Records regulations: The Federal rules restrict any use of the information to criminally investigate or prosecute any alcohol or drug abuse patient.[facility] the event this information is protected by the Federal Confidentiality of Alcohol and Drug Abuse Patient Records regulations: The Federal rules restrict any use of the information to criminally investigate or prosecute any alcohol or drug abuse patient.[facility] Reason for Visit (unrecogniz ed section and content) Reason Comments Established Patient cryo warts on hands Reason Comments Opened In Error Reason Comments Recheck warts on hands and r eview test result Reason Comments Follow Up lab results Reason Comments Recheck 6 month follow up Reason Comments Knee Pain left x 4 days Reason Comments Results Reason Comments Recheck Follow up Care Teams (unrecognized sec tion and content) Healthcare Translator Relationship Specialty Start Date End Date Sue Vidal MD [address] [place] [address] PCP - General Internal Medicine 06/06/20 Healthcare Translator Relationship Specialty Start Date End Date Sue Vidal MD [address] [place] [address] PCP - General Internal Medicine 06/06/20 Healthcare Translator Relationship Specialty Start Date End Date Sue Vidal MD [address] [place] [address] PCP - General Internal Medicine 06/06/20 Healthcare Translator Relationship Specialty Start Date End Date Sue Vidal MD [address] [place] [address] PCP - General Internal Medicine 06/06/20 Healthcare Translator Relationship Specialty Start Date End Date Sue Vidal MD [address] [place] [address] PCP - General Internal Medicine 06/06/20 Healthcare Translator Relationship Specialty Start Date End Date Sue Vidal MD [address] [place] [address] PCP - General Internal Medicine 06/06/20 Healthcare Translator Relationship Specialty Start Date End Date Sue Vidal MD [address] [place] [address] PCP - General Internal Medicine 06/06/20 Healthcare Translator Relationship Specialty Start Date End Date Sue Vidal MD [address] [place] [address] PCP - General Internal Medicine 06/06/20 Healthcare Translator Relationship Specialty Start Date End Date Sue Vidal MD [address] [place] [address] PCP - General Internal Medicine 06/06/20 FOR RECORDS PERTAINING TO PATIENTS WHO ARE OR HAVE BEEN ENROLLED IN A CHEMICAL DEPENDENCY/SUBSTANCEABUSE PROGRAM, SOME INFORMATION MAY BE OMITTED. This clinical summary was aggregated from multiple sources. Caution should be exercised in using it in the provision of clinical care. This summary normalizes information from multiple sources, and as a consequence, information in this document may materially change the coding, format and clinical context of patient data. In addition, data may be omitted in some cases. CLINICAL DECISIONS SHOULD BE BASED ON THE PRIMARY CLINICAL RECORDS. [facility] [employer] [facility]. provides no warranty or guarantee of the accuracy or completeness of information in this document.
[2023-09-09] MEDS: Lactated Ringers 1,000 ML 15 ML IV (06:08)
[2023-09-09] MEDS: Cefazolin 2 GM in 0.9% Normal Saline (100mL Bag) 100 ML IV (07:30)
[2023-09-09] MEDS: Epinephrine (1 mg/ml) 1 MG/ML VIAL (07:56)
[2023-09-09] MEDS: Bupivacaine 0.25% 30 ML Vial (09:14)
--- NOTE | 2023-09-09 09:53 | OP.PCM_ITS ---
Report of Operation Date of Procedure: 09/09/23
--- NOTE | 2023-09-09 09:53 | PCM.OPRPT ---
Report of Operation Date of Procedure: 09/09/23 Description of Surgical Findings:: Preoperative diagnosis: 1. Left shoulder rotator cuff tear 2. Left shoulder subacromial impingement syndrome 3. Symptomatic left acromioclavicular osteoarthritis 4. SLAP tear left shoulder with biceps tendinitis Postoperative diagnosis: 1. Left shoulder rotator cuff tear 2. Left shoulder subacromial impingement syndrome 3. Symptomatic left acromioclavicular osteoarthritis 4. SLAP tear left shoulder with biceps tendinitis Procedure: 1. Left shoulder arthroscopic rotator cuff repair 2. Left shoulder arthroscopic subacromial decompression 3. Left shoulder mini open biceps tenodesis 4. Left shoulder arthroscopic distal clavicle excision Primary Surgeon: Jose Rafael Lyle DO Fine Sander: Maddison Hoffman PA-C Anesthesia: General LMA with interscalene block Anesthesiologist: Chuck Reilly MD Complications: None apparent Specimen: None Estimated blood loss: 10 cc IV fluids: 1200 cc crystalloid Urine output: None Packing/drains: None Implants: Arthrex 4.75 mm bio composite swivel lock anchor x2, fibertak RC anchor x 2, metallic biceps button Intraoperative findings: Type II SLAP tear, left shoulder subacromial bursitis, full-thickness supraspinatus tendon tear, subscapularis fraying, AC joint osteoarthritis. Preoperative indications: This is a 68-year-old female seen in the outpatient setting for left shoulder pain and weakness. MRI was obtained and demonstrated tearing of the supraspinatus, SLAP tear with biceps tendinosis, subacromial impingement with downsloping spur finding acromion and AC joint osteoarthritis. She failed nonoperative management form of activity modification and home exercise. Operative intervention was offered in the form of left shoulder arthroscopic rotator cuff repair, subacromial decompression, distal clavicle excision and mini open subpectoral biceps tenodesis. The risks, benefits, terms the procedure reviewed with the patient at length and she agreed to proceed. Risks included but were not limited to bleeding, infection, loss of life or limb, need for additional surgery, persistent pain, nonhealing tendon or wounds, neurovascular injury, DVT or PE, stiffness. Patient expressed understanding of these risks and wished to proceed with surgery. Description of procedure: Patient was identified in the preoperative holding area by name, medical record number, and date of . Informed consent was confirmed with the patient. The operative extremity was marked with a surgical marker. All questions were answered to the patient's satisfaction. An interscalene block was administered prior to the procedure by the anesthesia staff. At time of the procedure, patient was was brought to the operative suite and positioned supine on a standard operating table. General anesthesia was induced and LMA placed. Patient was then positioned in the lateral decubitus position with all bony prominences well-padded and an axillary roll was placed. Patient was held in position with a beanbag. We spun the bed approximately 20 degrees. We then prepped and draped the operative upper extremity in a normal, sterile orthopedic fashion. We performed a timeout with all parties in attendance in agreement with the side, site, and operation be performed. No concerns were voiced and we elected to proceed. 2 g Ancef was administered prior to the incision by anesthesia staff. Operative upper extremity was placed in traction utilizing a traction sleeve. 10 pounds was applied to the right upper extremity throughout the majority of the case. I first outlined the bony landmarks of the shoulder. I established a standard posterior portal with an 11 blade scalpel. Blunt tipped trocar in cannula was inserted into the glenohumeral joint. The joint was insufflated with normal saline solution with epinephrine in the first 2 bags. Trocar was removed and diagnostic arthroscopy was commenced. I established a standard interval portal anteriorly with localization via spinal needle. Skin was sharply incised with 11 blade scalpel. Full-thickness tearing was noted of the supraspinatus. Fraying on the articular surface was debrided with a radial resector. Glenohumeral cartilage was pristine. Fraying was noted at the upper border of the subscapularis. This was debrided with a radial resector. Type II SLAP tear was noted with unstable biceps anchor. Arthroscopic cautery was used to perform biceps tenotomy at the biceps labral junction. Biceps was allowed to retract into the groove. The remainder of the labrum was noted to be degenerative like torn and debrided with a radial resector to stable cartilaginous rim. No loose bodies were identified. I then withdrew the arthroscope. I reentered the shoulder in the subacromial space. Subacromial bursitis was noted. A standard lateral portal was established with a 15 blade scalpel. A passport cannula was placed for suture management during rotator cuff repair. Subacromial bursectomy was performed limitedly overlying the rotator cuff tear. Bursal sided degenerative changes in the rotator cuff were debrided with a radial resector to a healthy appearing rim of cuff tissue. I then skeletonized the undersurface of the acromion exposing a downsloping spur off the anterior aspect of the acromion. I then utilized an arthroscopic bur to perform a subacromial decompression to a type I acromion removing the impinging spur. I then lightly decorticated the supraspinatus footprint with the bur. I then proceeded with rotator cuff repair via double row technique. 2 all suture fiber tack anchors were placed as our medial row at the articular margin approximately 1 cm apart. We then passed 2 sets of suture from each anchor sequentially through the rotator cuff tissue with the [employer] suture passer. A single limb of each suture was then passed through the eyelet of a swivel lock anchor. We selected our lateral row real estate and placed our lateral row anchors sequentially after tensioning suture. There is excellent reapproximation of the [place] tendon tissue and compression at the supraspinatus footprint. No identifiable dogears were encountered. Several lock anchors achieve excellent cortical purchase. Sutures were cut flush with the anchor. Final arthroscopic images were obtained of the rotator cuff repair. I then turned my attention to the AC joint. Inferior and anterior aspects of the joint capsule release with the arthroscopic cautery. Distal clavicle excision was then performed with the arthroscopic bur removing approximately 8 mm of distal clavicle. The superior and posterior aspects of the joint were left intact for stability. I then thoroughly lavaged the subacromial space. Arthroscopic instruments were removed. Portal sites were closed in standard fashion with [id number] 4-0 nylon suture. The operative extremity was then brought out of traction. An approximately 2 cm incision was made obliquely in line with the inferior border of the pectoralis major tendon near the axilla. Skin was sharply incised with a 15 blade scalpel. Superficial bleeders were cauterized with Bovie cautery. I bluntly dissected down to the level of the fascia identifying the investing fascia of the pectoralis major. This fascia was opened in line with the pectoralis major tendon. Hohmann retractor was placed beneath the pectoralis major tendon and lateral to the short head of biceps tendon to expose the long head of biceps tendon. A right angle hemostat was then used to retrieve the long head of the biceps tendon out of the wound. I proceeded with whipstitch fixation starting near the musculotendinous junction. The intercalary portion of the biceps tendon was then amputated. Sutures were passed through a metallic biceps button. I then selected our planned insertion of the biceps button in the subpectoral region of the humerus. Periosteum was elevated with a [place] elevator. I drilled unit cortically for a onlay tenodesis. Biceps button was then passed into the intramedullary humeral canal and flipped. Sutures were tensioned with excellent fixation and tension on the long head the biceps tendon. Sutures were tied. A single limb of suture was then passed back through the tendon for additional fixation and tied. Sutures were cut. Incision was thoroughly irrigated. Field block was administered with 10 cc of 0.25% plain bupivacaine. Dermis was reapproximated with buried 3-0 Vicryl suture and skin was finally approximated with a 4-0 subcuticular Monocryl. Bulky sterile compression dressing was applied. Patient tolerated procedure well without apparent complication. She was safely awoken the operative suite and extubated. She was transferred to her gurney and subsequently PACU in stable condition. UltraSling was applied in the operative suite to the operative extremity. Need for skilled anatomic pathology assistant: Maddison Hoffman PA-C was critical to the outcome of the case. During the course of the procedure the physician anatomic pathology assistant played a vital role. Her intimate knowledge of my steps in the procedure aided in safe and expedient completion of the procedure. The PA played a vital role in positioning particularly in obtaining the appropriate positioning. The PA was also vital in the retraction of soft tissues during the exposure and protecting vital structures. The PA was also vital and obtaining tendon reduction and assisting with hardware placement. She also played a vital role in closure and sling application with my direct supervision. Postoperative plan: Patient will be nonweightbearing to the operative extremity. She should maintain his sling at all times unless to shower. She may shower on postoperative day #2 if no significant drainage. She will follow up in approximately 2 weeks for suture removal and initiation of physical therapy. We will plan to initiate twice daily 81 mg aspirin for DVT prophylaxis starting tomorrow. Prescription for oxycodone was sent to her his pharmacy for postoperative analgesia.
[2023-09-09] MEDS: Ketorolac 15 MG/ML Vial IV (10:10)
== END 2023-09-09 14:18 | disposition home or self-care (01) ==
LOC: SDC 05:24 → AC 05:26
PROVIDERS: PCP Nurse Practitioner; Referring Provider Student in an Organized Health Care Education/Training Program; Visit Provider Student in an Organized Health Care Education/Training Program
PROC: (CPT 29827; principal; 2023-09-09 07:10)
DX: M19.012 Primary osteoarthritis, left shoulder (principal); S43.432A Superior glenoid labrum lesion of left shoulder, initial encounter; M75.122 Complete rotator cuff tear or rupture of left shoulder, not specified as traumatic; M75.22 Bicipital tendinitis, left shoulder; M75.42 Impingement syndrome of left shoulder; Z86.16 Personal history of COVID-19; Z79.82 Long term (current) use of aspirin; E55.9 Vitamin D deficiency, unspecified
CPT/HCPCS: 23120; 29826; 23430; 29827; 00450; 64450; J7120; J2405

== ENCOUNTER → 2025-01-29 | Outpatient (CLI) | payer MEDICARE, OTHER, SELFPAY ==
[2025-01-29 11:11] LABS: Cholesterol 227 mg/dL (<=200); High Density Lipoprotein 64 mg/dL; Low Density Lipoprotein Calc. 128 mg/dL; Triglycerides 174 mg/dL; Very Low Density Lipoprotein 35 mg/dL (5-40); cholesterol:hdl ratio screen 3.56
== END | disposition home or self-care (01) ==
LOC: LAB 08:45
PROVIDERS: PCP Nurse Practitioner; Referring Provider Internal Medicine Cardiovascular Disease; Visit Provider Internal Medicine Cardiovascular Disease
DX: E78.5 Hyperlipidemia, unspecified (principal)
CPT/HCPCS: 36415; 80061

== ENCOUNTER → 2025-02-12 | Outpatient (CLI) | payer MEDICARE, OTHER, SELFPAY | END | disposition home or self-care (01) | PROVIDERS: PCP Nurse Practitioner; Referring Provider Internal Medicine Cardiovascular Disease; Visit Provider Internal Medicine Cardiovascular Disease | DX: I51.89 Other ill-defined heart diseases (principal) | CPT/HCPCS: 93306 ==

== ENCOUNTER 2025-05-10 06:01 | Day surgery (SDC) | payer MEDICARE, OTHER, SELFPAY ==
--- NOTE | 2025-04-25 13:16 | PAT.ANE_ITS ---
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 When Was Last Pacemaker Check QUESTION #4 FULL TEXT: You/Your Family Experience fever (hyperthermia) with Anesthesia Last Oral Intake Last Oral intake: Last Oral Intake NPO since Meds taken in AM with sips of water? Meds patient instructed to take am of surgery PONV PONV - internet sales associate: PONV - internet sales associate Female Yes 04/25/25 09:15 HX of Motion Sickness No 04/25/25 09:15 HX of N/V After Surgery Yes 04/25/25 09:15 Non-Smoker Yes 04/25/25 09:15 Duration of Surgery greater Yes 04/25/25 09:15 than 60 minutes Number of Risk Factors 4 04/25/25 09:15 PONV Score Severe Risk 04/25/25 09:15 Height & Weight Height & Weight: Anesthesia: Height & Weight Height 5 ft 1 in 01/03/25 08:44 Respiratory Assessment Respiratory Assessment - internet sales associate: Respiratory Tract Infection Hx - internet sales associate Hx Respiratory Tract Infection No 04/25/25 09:15 STOP Sleep Apnea STOP Sleep Apnea - internet sales associate: STOP Sleep Apnea - internet sales associate Hx Hypertension No 04/25/25 09:15 Hx Sleep Apnea No 04/25/25 09:15 CPAP No 09/09/23 09:38 BIPAP No 07/04/14 15:23 Do you snore loudly (louder No 04/25/25 09:15 than talking or can be heard Do you often feel tired/ No 04/25/25 09:15 fatigued/ sleepy during daytime? Has anyone observed you stop No 04/25/25 09:15 breathing during sleep? STOP Results Negative 04/25/25 09:15 QUESTION #5 FULL TEXT : Do you snore loudly (louder than talking or can be heard through closed doors)? 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 Specify any problems Hx of Preganancy in last 3 N/A 04/25/25 09:15 Months Nurse Filling Out Transfusion NBUCHER 04/25/25 09:15 & Questions: Date: 04/25/25 04/25/25 09:15 Time: 04/25/25 09:15 Patient unable to answer at this time (ie. confused, unrespo /Reproduction History /Reproductive History - internet sales associate: /Reproductive Hx- internet sales associate Hx Now No 04/25/25 09:15 Gestational Age (in weeks): EDC: Hx Hx Para Hx Section SAB No 04/25/25 09:15 [facility] Medical History (Updated 04/25/25 @ 09:23 by Johana Donaldson) PONV (postoperative nausea and vomiting) Wears glasses Post-menopausal Arthritis Back pain Migraine headache History of GI bleed Non-smoker Leg cramps History of pain when walking History of edema Cardiology follow-up encounter History of echocardiogram History of stress test Chest pain Vitamin D deficiency History of toxemia of Hyperlipidemia Home Medications ?Medication ?Instructions ?Recorded ?Last Taken ?Type calcium carbonate (Calcium 600) 600 mg PO DAILY Unknown History multivitamin 1 tab PO DAILY 04/13/23 Unkn own History lactobacillus combination no.9 4 4,000 mmu cells PO DA CASIE 12/16/23 Unknown History billion cell capsule (Adult 50 Plus Probiotic) cholecalciferol (vitamin D3) 50 50 mcg PO QDAY 5 Unknown History mcg (2,000 unit) capsule Allergy/AdvReac Type Severity Reaction Status Date / Time latex Allergy Rash Verified 04/25/25 09:12 Sulfa (Sulfonamide AdvReac Severe Hives Verified 04/25/25 09:12 Antibiotics) maddox AdvReac migraine Verified 04/25/25 09:12 onion (Onion) AdvReac Other Verified 04/25/25 09:12 orange juice ([place] Juice) AdvReac Other Verified 04/25/25 09:12 Family History Mother CAD (coronary artery disease) Heart disease CABG Father CVA (cerebral vascular accident) cerebral embolism Hypertension Brother Chest pain PVD (peripheral vascular disease) Medley's esophagus Grandfather Alzheimers disease Surgical History (Updated 04/25/25 @ 09:23 by Johana Donaldson) History of arthroplasty of left shoulder History of arthroplasty of left shoulder History of ankle surgery Hx of total hysterectomy (~07/2001) Hx of appendectomy Social History Smoking Status: Never smoker alcohol intake: never substance use type: does not use caffeine: Yes Audit: Pertinent Findings Pertinent Findings Stress test pertinent findings: Stress test 05/04/2023. Rest and stress SPECT Cardiolite nuclear imaging demonstrated relative uniform tracer uptake and myocardial perfusion appearing within normal limits. Peak pharmacologic ECG with no ischemic changes. LVEF of 71%. Echo (EF%) pertinent findings: Echo 02/13/2025. The LV ejection fraction is 65%. No evidence for diastolic dysfunction. Mild 1+ mitral valve insufficiency. Consult pertinent findings: Cardiology visit 01/03/2025. Patient with stage I diastolic dysfunction is here for follow-up visit. Denies any complaints. Recommendation Anesthesia Recommendation Anesthesia recommendation: OPTIMIZED for anesthesia
--- NOTE | 2025-04-26 12:42 | EKG12_ITS ---
Test Reason : OP Blood Pressure : */* mmHG Vent. Rate : 62 BPM Atrial Rate : 62 BPM P-R Int : 162 ms QRS Dur : 78 ms QT Int : 396 ms P-R-T Axes : 32 -12 40 degrees QTcB Int : 401 ms Normal sinus rhythm Anterior infarct , age undetermined Abnormal ECG Confirmed by AL FELIZ, ALBERTO ([id number]), avid editor LILI GAO ([id number]) on 04/27/2025 10:41:09 AM Referred By: Jose Rafael Lyle Confirmed By: ALBERTO MELENDEZ MD
[2025-04-26 13:51] LABS: Hematocrit 43.4 % (37-47); Hemoglobin 14.0 g/dL (12.0-15.0); Immature Granulocytes Count 0.020 X10^3/uL (0.0-0.0); Mean Corp Hgb Conc 32.3 g/dL (32-36); Mean Corpuscular Volume 94.6 fL (81-99); Mean Platelet Vol. 13.6 fl (6.2-12.0); NRBC Flagged by Analyzer 0 % (0-5); Platelet Count 150 K/mm3 (150-450); RBC Distribution Width CV 13.9 % (11.6-14.6); RBC Distribution Width SD 48.5 fl (35.1-43.9); Red Blood Count 4.59 M/mm3 (4.2-5.4); White Blood Count 7.8 K/mm3 (4.4-11.0)
[2025-04-26 14:30] LABS: Anion Gap 10 (5-15); BUN 12 mg/dL (4-19); BUN/Creat Ratio 15.4 RATIO (10-20); Calcium,Total 9.1 mg/dL (7.6-11.0); Carbon Dioxide 24.5 mmol/L (21.0-32.0); Chloride 105 mmol/L (98-108); Glucose 76 mg/dL (70-99); Potassium 4.0 mmol/L (3.3-5.1)
--- NOTE | 2025-04-27 13:36 | PAT.ANE_ITS ---
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 When Was Last Pacemaker Check QUESTION #4 FULL TEXT: You/Your Family Experience fever (hyperthermia) with Anesthesia Last Oral Intake Last Oral intake: Last Oral Intake NPO since Meds taken in AM with sips of water? Meds patient instructed to take am of surgery PONV PONV - performance specialist: PONV - performance specialist Female Yes 04/25/25 09:15 HX of Motion Sickness No 04/25/25 09:15 HX of N/V After Surgery Yes 04/25/25 09:15 Non-Smoker Yes 04/25/25 09:15 Duration of Surgery greater Yes 04/25/25 09:15 than 60 minutes Number of Risk Factors 4 04/25/25 09:15 PONV Score Severe Risk 04/25/25 09:15 Height & Weight Height & Weight: Anesthesia: Height & Weight Height 5 ft 1 in 01/03/25 08:44 Respiratory Assessment Respiratory Assessment - performance specialist: Respiratory Tract Infection Hx - performance specialist Hx Respiratory Tract Infection No 04/25/25 09:15 STOP Sleep Apnea STOP Sleep Apnea - performance specialist: STOP Sleep Apnea - performance specialist Hx Hypertension No 04/25/25 09:15 Hx Sleep Apnea No 04/25/25 09:15 CPAP No 09/09/23 09:38 BIPAP No 07/04/14 15:23 Do you snore loudly (louder No 04/25/25 09:15 than talking or can be heard Do you often feel tired/ No 04/25/25 09:15 fatigued/ sleepy during daytime? Has anyone observed you stop No 04/25/25 09:15 breathing during sleep? STOP Results Negative 04/25/25 09:15 QUESTION #5 FULL TEXT : Do you snore loudly (louder than talking or can be heard through closed doors)? 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 Specify any problems Hx of Preganancy in last 3 N/A 04/25/25 09:15 Months Nurse Filling Out Transfusion NBUCHER 04/25/25 09:15 & Questions: Date: 04/25/25 04/25/25 09:15 Time: 04/25/25 09:15 Patient unable to answer at this time (ie. confused, unrespo /Reproduction History /Reproductive History - performance specialist: /Reproductive Hx- performance specialist Hx Now No 04/25/25 09:15 Gestational Age (in weeks): EDC: Hx Hx Para Hx Section SAB No 04/25/25 09:15 [facility] Medical History (Updated 04/25/25 @ 09:23 by Johana Donaldson) PONV (postoperative nausea and vomiting) Wears glasses Post-menopausal Arthritis Back pain Migraine headache History of GI bleed Non-smoker Leg cramps History of pain when walking History of edema Cardiology follow-up encounter History of echocardiogram History of stress test Chest pain Vitamin D deficiency History of toxemia of Hyperlipidemia Home Medications ?Medication ?Instructions ?Recorded ?Last Taken ?Type calcium carbonate (Calcium 600) 600 mg PO DAILY Unknown History multivitamin 1 tab PO DAILY 04/13/23 Unkn own History lactobacillus combination no.9 4 4,000 mmu cells PO DA CASIE 12/16/23 Unknown History billion cell capsule (Adult 50 Plus Probiotic) cholecalciferol (vitamin D3) 50 50 mcg PO QDAY 5 Unknown History mcg (2,000 unit) capsule Allergy/AdvReac Type Severity Reaction Status Date / Time latex Allergy Rash Verified 04/25/25 09:12 Sulfa (Sulfonamide AdvReac Severe Hives Verified 04/25/25 09:12 Antibiotics) maddox AdvReac migraine Verified 04/25/25 09:12 onion (Onion) AdvReac Other Verified 04/25/25 09:12 orange juice ([place] Juice) AdvReac Other Verified 04/25/25 09:12 Family History Mother CAD (coronary artery disease) Heart disease CABG Father CVA (cerebral vascular accident) cerebral embolism Hypertension Brother Chest pain PVD (peripheral vascular disease) Medley's esophagus Grandfather Alzheimers disease Surgical History (Updated 04/25/25 @ 09:23 by Johana Donaldson) History of arthroplasty of left shoulder History of arthroplasty of left shoulder History of ankle surgery Hx of total hysterectomy (~07/2001) Hx of appendectomy Social History Smoking Status: Never smoker alcohol intake: never substance use type: does not use caffeine: Yes Audit: Pertinent Findings HISTORY of Pertinent Findings History of Pertinent Findings: Stress Test Pertinent Findings Stress test pertinent findings Stress test 05/04/2023. Rest 04/25/25 13:20 and stress SPECT Cardiolite nuclear imaging demonstrated relative uniform tracer uptake and myocardial perfusion appearing within normal limits. Peak pharmacologic ECG with no ischemic changes . LVEF of 71%. Echo Pertinent Findings Echo (EF%) pertinent findings Echo 02/13/2025. The LV 04/25/25 13:18 ejection fraction is 65%. No evidence for diastolic dysfunction. Mild 1+ mitral valve insufficiency. Consult Pertinent Findings Consult pertinent findings Cardiology visit 01/03/2025. 04/25/25 13:20 Patient with stage I diastolic dysfunction is here for follow-up visit. Denies any complaints. Pertinent Findings EKG Perinent findings: 04/26/2025. Normal sinus rhythm 62 bpm. Anterior infarct, age undetermined. Recommendation Anesthesia Recommendation Anesthesia recommendation: OPTIMIZED for anesthesia
[2025-05-10] VITALS (13 sets, daily range): BP systolic 107–150; BP diastolic 59–79; PULSE 60–79; RESP 16; TEMP 35.5–36.8; O2SAT 92–99; BMI 33.8
[2025-05-10] MEDS: Lactated Ringers 1,000 ML 15 ML IV ×2 (06:15→09:31)
--- NOTE | 2025-05-10 06:46 | PCM.PRE.AN2 ---
ASA Classification* ASA Classification ASA Classification: 2 Assessment & Plan Anesthesia* Anesthesia Assessment Anesthesia Assessment: Discussed sedation and/or anesthesia options, risks, benefits, and alternatives with patient/parents/legal guardian/POA. Questions invited. The patient/parents/legal guardian/POA seems to understand and agrees to proceed with anesthesia plan. Reviewed the physical assessment, medical history, allergy history and patient home medications list prior to surgery/procedure/anesthetic and documented any changes. Performed airway and anesthesia risk assessments. Anesthesia Type Anesthesia Type: General and Block (Patient is consented for right interscalene block.) History Source History Obtained from:: Patient and Chart Anesthesia Focused Assessment* Temperature: 98.1 F Pulse Rate: 79 Blood Pressure: 123/75 Respiratory Rate: 16 Pulse Ox: 99 Oxygen Delivery Method: Room Air Airway Assessment Mouth opens: >3 cm Mallampati Score: IV Teeth Condition: Caps/Crowns (Patient has several crowns. They are tight.) Neck Range of motion (ROM): Full ROM Labs Anesthesia Preop lab: CBC WBC, (4.4-11.0) 7.8 K/mm3 04/26/25, 13:39 RBC, (4.2-5.4) 4.59 M/mm3 04/26/25, 13:39 Hgb, (12.0-15.0) 14.0 g/dL 04/26/25, 13:39 Hct, (37-47) 43.4 % 04/26/25, 13:39 Plt Count, (150-450) 150 K/mm3 04/26/25, 13:39 CHEMISTRY Potassium, (3.3-5.1) 4.0 mmol/L 04/26/25, 13:39 Sodium, (133-145) 140 mmol/L 04/26/25, 13:39 BUN, (4-19) 12 mg/dL 04/26/25, 13:39 Creatinine, (0.70-1.20) 0.77 mg/dL 04/26/25, 13:39 Glucose, (70-99) 76 mg/dL 04/26/25, 13:39 COAG Pre-Assessment Diagnosis/Proposed Procedure Planned Operative Procedure(s): (R) Arthroscopy,Shoulder Rotator Cuff Repair and Biceps Tenodesis Anesthesia History 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 When Was Last Pacemaker Check QUESTION #4 FULL TEXT: You/Your Family Experience fever (hyperthermia) with Anesthesia Last Oral Intake Last Oral intake: Last Oral Intake NPO since 23:00 05/10/25 06:32 Meds taken in AM with sips of No 05/10/25 06:32 water? 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 Female Yes 04/25/25 09:15 HX of Motion Sickness No 04/25/25 09:15 HX of N/V After Surgery Yes 04/25/25 09:15 Non-Smoker Yes 04/25/25 09:15 Duration of Surgery greater Yes 04/25/25 09:15 than 60 minutes Number of Risk Factors 4 04/25/25 09:15 PONV Score Severe Risk 04/25/25 09:15 Height & Weight Height & Weight: Anesthesia: Height & Weight Height 5 ft 1 in 05/10/25 06:32 Weight: 81.193 kg 05/10/25 06:32 Body Mass Index (BMI) 33.8 05/10/25 06:32 Respiratory Assessment Respiratory Assessment - well drill operator: Respiratory Tract Infection Hx - well drill operator Hx Respiratory Tract Infection No 04/25/25 09:15 STOP Sleep Apnea STOP Sleep Apnea - well drill operator: STOP Sleep Apnea - well drill operator Hx Hypertension No 04/25/25 09:15 Hx Sleep Apnea No 04/25/25 09:15 CPAP No 09/09/23 09:38 BIPAP No 07/04/14 15:23 Do you snore loudly (louder No 04/25/25 09:15 than talking or can be heard Do you often feel tired/ No 04/25/25 09:15 fatigued/ sleepy during daytime? Has anyone observed you stop No 04/25/25 09:15 breathing during sleep? STOP Results Negative 04/25/25 09:15 QUESTION #5 FULL TEXT : Do you snore loudly (louder than talking or can be heard through closed doors)? Tobacco Use History Tobacco Use History - well drill operator: Tobacco Use History - well drill operator Tobacco Use Smoking Status Never smoker 04/25/25 09:15 Hx Tobacco Use No 04/25/25 09:15 Years Smoking Packs Smoked per Day Smoking Cessation Date was within the last 15 years Hx Smoking Cessation Date Hx Smoking Cessation Counseling Hematologic Medial History Hematologic Hx - well drill operator: Hematologic Medical Hx - dishcloth folder Hx of Blood Transfusion No 04/25/25 09:15 Hx of Transfusion in last 3 No 04/25/25 09:15 Months Date of Last Transfusion (if within last 3 months) Ever experience any problems No 04/25/25 09:15 with transfusion(s)? Specify any problems Hx of Preganancy in last 3 N/A 04/25/25 09:15 Months Nurse Filling Out Transfusion NBUCHER 04/25/25 09:15 & Questions: Date: 04/25/25 04/25/25 09:15 Time: :04/25/25 09:15 Patient unable to answer at this time (ie. confused, unrespo /Reproduction History /Reproductive History - well drill operator: /Reproductive Hx- well drill operator Hx Now No 04/25/25 09:15 Gestational Age (in weeks): EDC: Hx Hx Para Hx Section SAB No 04/25/25 09:15 Active Medications Active Medications: Current Medications Generic Name Dose Route Start Last Admin Trade Name Freq PRN Reason Stop Dose Admin Cefazolin Sodium 2 gm/ Sodium 110 mls @ 200 mls/hr 05/10/25 07:30 Chloride IV 05/10/25 08:02 INTRAOP ONE Lactated Ringer's 1,000 mls @ 15 mls/hr 05/10/25 06:15 IV .Q48H JANUSZ PFSH Medical History PONV (postoperative nausea and vomiting) Wears glasses Post-menopausal Arthritis Back pain Migraine headache History of GI bleed Non-smoker Leg cramps History of pain when walking History of edema Cardiology follow-up encounter History of echocardiogram History of stress test Chest pain Vitamin D deficiency History of toxemia of Hyperlipidemia Home Medications ?Medication ?Instructions ?Recorded ?Last Taken ?Type calcium carbonate (Calcium 600) 600 mg PO DAILY 04/13/23 Unknown History multivitamin 1 tab PO DAILY 04/13/23 Unknown History lactobacillus combination no.9 4 4,000 mmu cells PO DAILY 12/16/23 Unknown History billion cell capsule (Adult 50 Plus Probiotic) cholecalciferol (vitamin D3) 50 50 mcg PO QDAY 01/03/25 Unknown History mcg (2,000 unit) capsule Allergy/AdvReac Type Severity Reaction Status Date / Time latex Allergy Rash Verified 05/10/25 06:31 Sulfa (Sulfonamide AdvReac Severe Hives Verified 05/10/25 06:31 Antibiotics) maddox AdvReac migraine Verified 05/10/25 06:31 onion (Onion) AdvReac Other Verified 05/10/25 06:31 orange juice ([place] Juice) AdvReac Other Verified 05/10/25 06:31 Family History Mother CAD (coronary artery disease) Heart disease CABG Father CVA (cerebral vascular accident) cerebral embolism Hypertension Brother Chest pain PVD (peripheral vascular disease) Medley's esophagus Grandfather Alzheimers disease Surgical History History of arthroplasty of left shoulder History of arthroplasty of left shoulder History of ankle surgery Hx of total hysterectomy (~07/2001) Hx of appendectomy Social History Smoking Status: Never smoker alcohol intake: never substance use type: does not use caffeine: Yes Review of Systems (Anesthesia) ROS Narrative System reviewed and no additional complaints, except as documented.
[2025-05-10] MEDS: Midazolam 2 MG/2 ML Syringe IV (07:30)
[2025-05-10] MEDS: Scopolamine 1mg/72hr Patch 1 PATCH TD (07:39)
[2025-05-10] MEDS: Cefazolin 1 GM/5 ML Vial 2 GM IV (07:39)
[2025-05-10] MEDS: Lidocaine 1% (5 ml sdv) 5 ML Vial 6 ML IV (07:44)
[2025-05-10] MEDS: Epinephrine (1 mg/ml) 1 MG/ML VIAL (08:04)
--- NOTE | 2025-05-10 09:17 | PCM.POST.ANE ---
Anesthesia: Postop Eval I Current Vital Signs Temperature: 98.2 F Pulse Rate: 63 Blood Pressure: 142/73 Respiratory Rate: 16 Pulse Ox: 92 Assessment Airway patent: Yes Spontaneous unlabored respirations: Yes nausea: No Vomiting: No Anesthesia Complication: No Fluid Hydration Crystalloid volume administer (ml): 800 Total IV fluid infused: 800 Progress Note Anesthesia document: Postop Eval 1 completed: Yes
--- NOTE | 2025-05-10 09:25 | PCM.OPRPT ---
Operative Report (Standard) Operative Information Date of Procedure: 05/10/25 Pre-Operative Diagnosis: 1. Right shoulder rotator cuff tear 2. Right shoulder long head of biceps tendon tendinosis Post-Operative Diagnosis: 1. Right shoulder rotator cuff tear 2. Right shoulder long head of biceps tendon tendinosis Surgery/Procedure Performed: Right shoulder arthroscopic rotator cuff repair with arthroscopic biceps tenodesis polysomnographic technician: Yes Notching Press Operator: Maddison Hoffman Tasks completed by retail assistant store manager: Opening & closing, Implanting device and Retracting Type of Anesthesia: General/Regional RN Documented Start/Stop Times: Operation Date: 05/10/25 07:30 Case Time Into Pre-Op 05/10/25 06:10 Anesthesia Start 05/10/25 07:39 Into Room 05/10/25 07:39 Out of Pre-Op 05/10/25 07:39 Procedure Start 05/10/25 08:04 Procedure End 05/10/25 09:07 Anesthesia End 05/10/25 09:11 Out of Room 05/10/25 09:11 Into Recovery 05/10/25 09:15 Procedure Start Time: 08:04 Procedure Stop Time: 09:07 Select all DRAINS/GRAFTS/IMPLANTS that apply: Implanted device Implanted device details: Arthrex RC fiber tack anchor x 2, bio composite swivel lock anchor 4.75 mm x 3 Estimated Blood Loss: 5 cc Specimen collected: No Description of surgery: Patient was identified in the preoperative holding area by name, medical record number, and date of . The operative extremity was marked. All questions were answered to the patient's satisfaction. Interscalene block was then administered by anesthesia staff. At time of her procedure, patient was brought to the operative suite and positioned supine standard operating table. General anesthesia was induced and endotracheal tube placed. Patient positioned in a lateral decubitus position with the right side up. Axillary roll was placed. All bony prominences were well-padded. She was held in place with a beanbag. We spun the bed 45 degrees. Right upper extremity was prepped and draped in normal, sterile orthopedic fashion. 2 g Ancef was administered IV prior to incision by anesthesia staff. We performed timeout confirming side, site, and operation to be performed. No concerns were voiced on him to proceed with surgery. Right upper extremity was placed in arthroscopic traction with 15 pounds of traction force applied to the right arm throughout the arthroscopic portion the case approximately 50 minutes. I first established a posterior portal along the posterior border of the scapular spine. Blunt tipped trocar was used to enter glenohumeral joint. Joint was filled with normal saline with epinephrine. An anterior interval portal was established. Minimal synovitis was encountered. Glenohumeral cartilage was minimally degenerative. Partial tearing along head of biceps tendon was noted in the intra-articular portion. Minimal fraying at the biceps anchor. Labrum. Mildly degenerative otherwise intact. No loose bodies are identified. Full-thickness crescent-shaped tear of the supraspinatus was noted. Laminar partial tearing of the subscapularis was noted. Rigid cannula was then placed through the anterior portal. Loop and tack fixation of the biceps tendon was utilized with a fiber link suture for an intra-articular tenodesis. Biceps tenotomy was performed after suture passage around and through the biceps tendon with a [place]. The tendon was allowed to retract. Sutures passed through the eyelet of the swivel lock anchor which was placed along the superior margin of the lesser tuberosity with excellent purchase. The biceps labral junction was cauterized to contour. The articular side of the supraspinatus was debrided with a shaver. I then removed the arthroscopic instruments. I reentered the shoulder and subacromial space. Lateral portal was established. Bursitis was debrided with a shaver. The acromion was skeletonized and a spur was noted. This was resected to a smooth type I acromion with a bur in standard fashion. The bursal side of the supraspinatus was debrided. Cuff mobility was assessed and was excellent. Footprint was prepared with a bur for a light decortication. I proceeded with double row fixation with 2 medial row RC double loaded fiber tack anchors. 4 suture limbs were passed from each suture anchor for a total passes. 2 of the suture pairs were tied and cut. The remaining 2 tape sutures were passed through 2 swivel lock anchors for lateral row fixation in standard 2 x 2 fixation pattern. Sutures were tensioned and lateral anchors were placed along the lateral margin of the greater tuberosity. Excellent compression and reapproximation of the supraspinatus to its footprint were noted. Sutures were cut. No dogears were identified. Subacromial space was thoroughly lavaged. Final arthroscopic images were obtained. Instruments were removed. Excess fluid was drained from the shoulder. Portal sites were closed interrupted [id number] fashion with 4-0 nylon suture. Bulky sterile compression dressing was applied. Patient was placed in an UltraSling. She was safely awakened and extubated in the operative suite. She was transferred to her gurney and subsequent to PACU in stable condition. Need for skilled retail assistant store manager: Maddison Hoffman PA-C was critical to the outcome of the case. During the course of the procedure the physician retail assistant store manager played a vital role. Her intimate knowledge of my steps in the procedure aided in safe and expedient completion of the procedure. The PA played a vital role in positioning particularly in obtaining the appropriate positioning. The PA was also vital in the retraction of soft tissues during the exposure and protecting vital structures. The PA was also vital and obtaining fracture reduction and assisting with hardware placement. She also played a vital role in closure and sling application with my direct supervision. Postoperative plan: Discharge home after meeting same-day surgery criteria today. Ice to the operative site. Aspirin 81 mg twice daily for DVT prophylaxis x 2 weeks. Follow-up in 2 weeks for suture removal and initiation of physical therapy. Standard rotator cuff repair rehab protocol. Sling x 6 weeks. Oxycodone, Tylenol encouraged for pain relief postoperatively as well as ibuprofen. Surgical Findings: Full-thickness crescent-shaped supraspinatus tear. Biceps tendinosis. Complications Complications: No Admit VTE Documentation VTE Present on Admission: No VTE Mechan Device Prophylaxis: SCD's VTE Pharm Prophylaxis ordered?: Yes
--- NOTE | 2025-05-10 16:19 | POSTOPAN2_ITS ---
Anesthesia Postop Eval I Sum Postop Eval Completion status Anesthesia document: Postop Eval 1 completed: Yes Anesthesia Postop Eval I Summary Anesthesia Postop Eval I Summary: Anesthesia Postop Eval I: Assessment Summary Airway patent Yes 05/10/25 09:17 BENDING MACHINE SET UP OPERATOR.TNES Spontaneous unlabored Yes 05/10/25 09:17 BENDING MACHINE SET UP OPERATOR.TNES respirations Mental status nausea No 05/10/25 09:17 BENDING MACHINE SET UP OPERATOR.TNES Vomiting No 05/10/25 09:17 BENDING MACHINE SET UP OPERATOR.TNES Anesthesia Postop Eval I: Fluid Summary Crystalloid volume administer 800 05/10/25 09:17 BENDING MACHINE SET UP OPERATOR.TNES (ml) Colloids volume administered ( ml) Blood Product volume administered (ml) Total IV fluid infused 800 05/10/25 09:17 BENDING MACHINE SET UP OPERATOR.TNES Anesthesia Postop Eval I: Summary Notes Anesthesia Complication No 05/10/25 09:17 BENDING MACHINE SET UP OPERATOR.TNES Anesthesia Complication Comment: Post-operative progress note Anesthesia: Postop Eval II Evaluation Mental status: Awake Pain Level: 0 nausea: No Vomiting: No
--- NOTE | 2025-05-10 16:19 | PCM.POSTANE2 ---
Anesthesia Postop Eval I Sum Postop Eval Completion status Anesthesia document: Postop Eval 1 completed: Yes Anesthesia Postop Eval I Summary Anesthesia Postop Eval I Summary: Anesthesia Postop Eval I: Assessment Summary Airway patent Yes 05/10/25 09:17 SURVEY RESEARCH TEACHER.TNES Spontaneous unlabored Yes 05/10/25 09:17 SURVEY RESEARCH TEACHER.TNES respirations Mental status nausea No 05/10/25 09:17 SURVEY RESEARCH TEACHER.TNES Vomiting No 05/10/25 09:17 SURVEY RESEARCH TEACHER.TNES Anesthesia Postop Eval I: Fluid Summary Crystalloid volume administer 800 05/10/25 09:17 SURVEY RESEARCH TEACHER.TNES (ml) Colloids volume administered ( ml) Blood Product volume administered (ml) Total IV fluid infused 800 05/10/25 09:17 SURVEY RESEARCH TEACHER.TNES Anesthesia Postop Eval I: Summary Notes Anesthesia Complication No 05/10/25 09:17 SURVEY RESEARCH TEACHER.TNES Anesthesia Complication Comment: Post-operative progress note Anesthesia: Postop Eval II Evaluation Mental status: Awake Pain Level: 0 nausea: No Vomiting: No
== END 2025-05-10 13:11 | disposition home or self-care (01) ==
LOC: SDC 06:03 → AC 06:08
PROVIDERS: PCP Nurse Practitioner; Referring Provider Student in an Organized Health Care Education/Training Program; Visit Provider Student in an Organized Health Care Education/Training Program
PROC: (CPT 29827; principal; 2025-05-10 07:10)
DX: S46.011A Strain of muscle(s) and tendon(s) of the rotator cuff of right shoulder, initial encounter (principal); Z86.16 Personal history of COVID-19; W19.XXXA Unspecified fall, initial encounter
CPT/HCPCS: 29827; 29828; 64450; 01630; 36415; 80048; 85025; 93005; C1713; J2405

== ENCOUNTER → 2025-07-19 | Outpatient (CLI) | payer MEDICARE, OTHER, SELFPAY ==
[2025-07-19 10:12] LABS: Cholesterol 246 mg/dL (<=200); Low Density Lipoprotein Calc. 139 mg/dL; Triglycerides 160 mg/dL; Very Low Density Lipoprotein 32 mg/dL (5-40); cholesterol:hdl ratio screen 3.13
== END | disposition home or self-care (01) ==
LOC: LAB 08:56
PROVIDERS: PCP Nurse Practitioner; Visit Provider Student in an Organized Health Care Education/Training Program
DX: E78.5 Hyperlipidemia, unspecified (principal)
CPT/HCPCS: 36415; 80061